=== PATIENT | female | born 1960 | race American Indian/Alaskan Native ===

== ENCOUNTER 2016-12-26 19:44 | Emergency (ER) | payer OTHER, MEDICARE ==
[~2016-12-26 19:44] MED LIST: predniSONE 20 MG Tab PO ONE
[2016-12-26 19:47] VITALS: BP 143/68
--- NOTE | 2016-12-26 20:19 | EDM.PDOC ---
ED HPI GENERAL MEDICAL PROBLEM - General Chief Complaint: Skin Complaint Stated Complaint: RASH Time Seen by Provider: 12/26/16 20:14 Source of Information: Reports: Patient, Family History Limitations: Reports: No Limitations - History of Present Illness INITIAL COMMENTS - FREE TEXT/NARRATIVE: 3 day history of pruretic rash started on the left middle toe region spreading to the left posterior leg and buttock as well as the right dorsal foot. Patient states recent chemotherapy for breast cancer and metastatic cancer of the brain and liver. She states she did not get into any weeds or grass. No change in medications. She states the itching is more irritating with scratching and spreading. She presents for evaluation and treatment. Onset: Gradual Onset Date: 12/24/16 Onset Time: 20:00 Duration: Getting Worse Location: Reports: Lower Extremity, Left, Lower Extremity, Right Quality: Reports: Other (Itching without pain) Severity: Mild Improves with: Reports: None Worsens with: Reports: Other (Time) Associated Symptoms: Reports: No Other Symptoms - Related Data Allergies Allergy/AdvReac Type Severity Reaction Status Date / Time calcitonin,salmon,synthetic Allergy Cannot Verified 12/26/16 19:47 [From Miacalcin] Remember codeine Allergy Hives Verified 12/26/16 19:47 shellfish derived Allergy Hives Verified 12/26/16 19:47 Home Meds: Home Meds Cholecalciferol (Vitamin D3) [Vitamin D-3] 1,000 unit PO DAILY 01/20/14 [History ] Esomeprazole [NexIUM] 40 mg PO DAILY 01/20/14 [History] Fish Oil/[place]-3 Fatty Acids [Fish Oil] 500 mg PO DAILY 01/20/14 [History] Lisinopril [Prinivil] 20 mg PO DAILY 01/20/14 [History] oxyCODONE [oxyCODONE] 20 - 40 mg PO Q4H PRN 01/20/14 [History] Calcium Carbonate [Tums] 500 mg PO QID PRN 05/14/15 [History] Cyanocobalamin/FA/Pyridoxine [Folbee] 1 each PO ASDIRECTED 05/14/15 [History] LORazepam [Ativan] 1 mg PO ASDIRECTED PRN 05/14/15 [History] Magnesium 500 mg PO BID 05/14/15 [History] Ondansetron HCl [Zofran] 4 mg PO Q6H PRN 05/14/15 [History] Sennosides [Senokot] 8.6 mg PO DAILY 05/14/15 [History] oxyCODONE ER [OxyCONTIN] 60 mg PO Q12HR 05/14/15 [History] QUEtiapine Fumarate [Seroquel] 25 mg PO BEDTIME PRN 12/26/16 [History] Past Medical History HEENT History: Reports: Allergic Rhinitis, Impaired Vision Cardiovascular History: Reports: Hypertension Respiratory History: Reports: Other (See Below) (Pulmonary Hypertension) Gastrointestinal History: Reports: None Genitourinary History: Reports: None : 3 Para: 2 Other OB/BYN History: Hysterectomy TAHBSO Musculoskeletal History: Reports: Arthritis Neurological History: Reports: Neuropathy, 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) Psychiatric History: Reports: None Endocrine/Metabolic History: Reports: None Hematologic History: Reports: None Immunologic History: Reports: None Oncologic (Cancer) History: Reports: Brain, Breast, Liver, Metastatic Dermatologic History: Reports: Urticaria - Infectious Disease History Infectious Disease History: Reports: None - Past Surgical History Other Oncologic Surgeries/Procedures: partial removal of liver secondary to cancer Social & Family History - Family History Family Medical History: Noncontributory : Reports: Dialysis, Renal Disease/Insufficiency Endocrine/Metabolic: Reports: Diabetes, type II - Tobacco Use Smoking Status *Q: Current Every Day Smoker Tobacco Use Within Last Twelve Months: Cigarettes Years of Tobacco use: 23 Packs/Tins Daily: 1 Smoking Cessation Information Provided To Patient: Yes (Advised cessation) Second Hand Smoke Exposure: Yes - Tobacco Core Measures Tobacco Use/Smoking Within Last 30 Days: Yes Smoking Frequency Within Last 30 Days: Reports: Five or More Cigarettes Per Day - Caffeine Use Caffeine Use: Reports: Coffee - Alcohol Use Alcohol Use History: No - Recreational Drug Use Recreational Drug Use: No Drug Use in Last 12 Months: No - Sexual History Sexual History: Reports: None - Living Situation & Occupation Living situation: Reports: , with Spouse Occupation: Unemployed ED ROS GENERAL - Review of Systems Review Of Systems: See Below Constitutional: Reports: No Symptoms HEENT: Reports: No Symptoms Respiratory: Reports: No Symptoms Cardiovascular: Reports: No Symptoms Endocrine: Reports: No Symptoms GI/Abdominal: Reports: No Symptoms, Nausea (Chronic) : Reports: No Symptoms Musculoskeletal: Reports: Arm Pain (Tendonitis saw Mary Mancilla placed in a brace not wearing) Skin: Reports: Pruritis, Rash, Urticaria Neurological: Reports: Paresthesia, Pre-Existing Deficit, Tingling Psychiatric: Reports: No Symptoms Hematologic/Lymphatic: Reports: No Symptoms Immunologic: Reports: No Symptoms ED EXAM, SKIN/RASH Exam: See Below Exam Limited By: No Limitations General Appearance: Alert, WD/WN, No Apparent Distress Eye Exam: Bilateral Eye: EOMI, Normal Fundi, Normal Inspection, PERRL Ears: Normal External Exam, Normal Canal, Hearing Grossly Normal, Normal TMs Nose: Normal Inspection, Normal Mucosa, No Blood Throat/Mouth: Normal Inspection, Normal Lips, Normal Teeth, Normal Gums, Normal Oropharynx, Normal Voice, No Airway Compromise Head: Atraumatic, Normocephalic Neck: Normal Inspection, Supple, Non-Tender, Full Range of Motion Respiratory/Chest: No Respiratory Distress, Lungs Clear, Normal Breath Sounds, No Accessory Muscle Use, Chest Non-Tender Cardiovascular: Normal Peripheral Pulses, Regular Rate, Rhythm, No Edema, No Gallop, No JVD, No Murmur, No Rub GI/Abdominal: Normal Bowel Sounds, Soft, Non-Tender, No Organomegaly, No Distention, No Abnormal Bruit, No Mass (Female) Exam: Normal External Exam, Normal Speculum Exam, Normal Bimanual Exam Rectal (Female) Exam: Normal Exam, Normal Rectal Tone Back Exam: Normal Inspection, Full Range of Motion, NT Extremities: Normal Inspection, Normal Range of Motion, Non-Tender, No Pedal Edema, Normal Capillary Refill Neurological: Alert, Oriented, CN II-XII Intact, Normal Cognition, Normal Gait, Normal Reflexes, No Motor/Sensory Deficits Psychiatric: Normal Affect, Normal Mood Skin: Warm, Dry (Vesicular rash noted on the dorsal aspect of left foot-red blanchable rash noted left posterior leg and buttock. ), Increased Warmth, Zoster-Like Rash Location, Skin: Lower Extremity, Right, Lower Extremity, Left, Generalized Characteristics: Papular, Vesicular Associated features: Warmth, Tenderness. No: Induration, Lymphangitis, Inflammation, Weeping, Rough Lymphatic: No Adenopathy Course - Vital Signs Last Recorded V/S: Last Vital Signs Temp 36.6 C 12/26/16 19:44 Pulse 87 12/26/16 19:44 Resp 20 12/26/16 19:44 BP 143/68 H 12/26/16 19:44 Pulse Ox 97 12/26/16 19:44 Departure - Departure Time of Disposition: 20:36 Disposition: Home, Self-Care 01 Clinical Impression: Atopic dermatitis, Pruritic rash - Discharge Information Instructions: Contact Dermatitis, [id number], Pruritus Forms: ED Department Discharge Additional Instructions: Loratadine 10 mg daily as antihistamine. Prednisone 20 mg daily for 5 days. Hydrocortisone cream twice daily Avoid itching or scratching area. F/U with PCP as needed. - Problem List & Annotations (1) Dermatitis SNOMED Code(s): 25097629 Code(s): L30.9 - DERMATITIS, UNSPECIFIED Status: Acute - Problem List Review Problem List Initiated/Reviewed/Updated: Yes - Assessment/Plan Assessment:: Atopic Dermatitis Metastatic Cancer Tobacco Use Plan: Antihistamine for itching Medrol dose pack Hydrocortisone cream apply BID-twice daily as directed.
[2016-12-26] MEDS ORDERED: Loratadine 10 MG Tab PO ONE (20:32)
[2016-12-26] MEDS ORDERED: Take Home: predniSONE 20 MG, 2 Tab Pack PO ONE (20:33)
== END 2016-12-26 20:48 | disposition home or self-care (01) ==
LOC: CC.ED 19:44
DX: L20.9 Atopic dermatitis, unspecified (principal); L29.9 Pruritus, unspecified; Z91.013 Allergy to seafood; M19.90 Unspecified osteoarthritis, unspecified site; F17.210 Nicotine dependence, cigarettes, uncomplicated; H54.7 Unspecified visual loss; I10 Essential (primary) hypertension; C78.7 Secondary malignant neoplasm of liver and intrahepatic bile duct; Z79.899 Other long term (current) drug therapy; Z88.5 Allergy status to narcotic agent
CPT/HCPCS: 99282; A9270

== ENCOUNTER 2017-08-27 06:31 | Inpatient (IN) | payer MEDICARE, OTHER ==
[2017-08-27 07:20] LABS: CHLORIDE,CL 108 mEq/L (98-106); SODIUM,NA 145 mEq/L (136-145)
[2017-08-27] MEDS ORDERED: PYRIDOXINE PO SCH (08:00)
[2017-08-27] MEDS ORDERED: FOLIC ACID PO SCH (08:00)
[2017-08-27] MEDS ORDERED: CYANOCOBALAMIN PO SCH (08:00)
[2017-08-27] MEDS ORDERED: Lactated Ringers 1,000 ML ONE (09:46)
[2017-08-27] MEDS ORDERED: cefTRIAXone 1 GM Vial ONE (09:47)
[2017-08-27] MEDS ORDERED: Non-Formulary Medication 1 Each (Ondansetron Hcl 8 MG) PO PRN (12:03)
[2017-08-27] MEDS ORDERED: Calcium Carbonate 500 MG Tab.Chew PO PRN (12:03)
[2017-08-27] MEDS ORDERED: LORAZEPAM 1 MG PO PRN (12:03)
[2017-08-27] MEDS ORDERED: Acetaminophen 325 MG Tab PO PRN (12:03)
[2017-08-27] MEDS ORDERED: OXYCONTIN 40 MG PO SCH (12:03)
[2017-08-27] MEDS ORDERED: LORazepam 2 MG/ML Syringe IVPUSH PRN (12:03)
[2017-08-27] MEDS ORDERED: Ondansetron 4 MG Tab.DIS PO PRN ×2 (13:36→14:38)
[2017-08-27] MEDS ORDERED: ONDANSETRON 8 MG PO PRN (14:00)
[2017-08-27] MEDS: OXYCODONE 30 MG PO PRN ×4 (14:03→23:00)
[2017-08-27] MEDS: Enoxaparin 30 MG/0.3 ML Syringe SUBCUT SCH (14:27)
[2017-08-27] MEDS ORDERED: Lactated Ringers 1,000 ML IV SCH (14:45)
[2017-08-27] MEDS ORDERED: QUEtiapine 25 MG Tab PO PRN (20:00)
[2017-08-27] MEDS: MAGNESIUM CITRATE 250 MG PO SCH (20:36)
[2017-08-27] MEDS: OXYCONTIN 40 MG PO SCH (23:12)
[2017-08-28 07:27] LABS: CHLORIDE,CL 107 mEq/L (98-106); SODIUM,NA 142 mEq/L (136-145)
[2017-08-28] MEDS: OXYCODONE 30 MG PO PRN ×2 (07:40→10:48)
[2017-08-28] MEDS: OXYCONTIN 40 MG PO SCH ×2 (07:40→07:53)
[2017-08-28] MEDS: MAGNESIUM CITRATE 250 MG PO SCH (07:52)
[2017-08-28] MEDS ORDERED: Lisinopril 10 MG Tab PO SCH (08:00)
[2017-08-28] MEDS ORDERED: Pantoprazole 40 MG Tab.CR PO SCH (08:00)
[2017-08-28] MEDS ORDERED: Sennosides 8.6 MG Tab PO SCH (08:00)
--- NOTE | 2017-08-28 08:42 | EDM.PDOC ---
ED HPI GENERAL MEDICAL PROBLEM - General Chief Complaint: General Stated Complaint: CONFUSION Time Seen by Provider: 08/27/17 07:00 Source of Information: Reports: Patient, EMS, Family History Limitations: Reports: No Limitations - History of Present Illness INITIAL COMMENTS - FREE TEXT/NARRATIVE: Pam is a 57 yo female who presents to the ER via [facility] with concerns of stroke symptoms and confusion. Chun states he was in the bathroom when he heard his making noises. He states he went to check on her and she was staring at the ceiling, making a grunting noise and wouldn't respond to him. He states he tried waking her up. This lasted a few minutes and then she cam to. He states she was confused and combative. He notices she had wet herself in bed as well. He called EMS and EMS states she continued to be combative (trying to bite and hit them) and they immediately put her in the ambulance and brought her in. Upon arrival to ER patient was initially restless and continued to be confused. She gradually improved and realized she was in the hospital and asked to use the restroom. Staff assisted her to the bathroom which she voided a strong smelling urine. Upon my arrival patient is alert and orientated. She initially did not know my name; however she knew her and son, who were at her bedside. She didn't recall any prior events. She was asking why she was in the hospital. She does not recall the ambulance ride either. States she is really cold and tired. Pam doctors at [facility] in [place] as she receives chemotherapy secondary to metastatic breast cancer. She underwent right frontal lobe surgery in 2014 which they state has been fine. She recently underwent CT scan testing a few weeks ago and everything was looking well. She does suffer from chronic pain secondary to the metastasis. Onset: Today, Sudden Onset Date: 08/27/17 Onset Time: 06:05 Duration: Improving Location: Reports: Generalized Associated Symptoms: Reports: Confusion, Malaise. Denies: Headaches, Nausea/ Vomiting, Weakness Back Pain Score (Numeric/FACES): 6 - Related Data Allergies Allergy/AdvReac Type Severity Reaction Status Date / Time calcitonin,salmon,synthetic Allergy Cannot Verified 08/27/17 07:21 [From Miacalcin] Remember codeine Allergy Hives Verified 08/27/17 07:21 shellfish derived Allergy Hives Verified 08/27/17 07:21 Home Meds: Home Meds Cholecalciferol (Vitamin D3) [Vitamin D-3] 1,000 unit PO DAILY 01/20/14 [History ] Esomeprazole [NexIUM] 40 mg PO DAILY 01/20/14 [History] Fish Oil/[place]-3 Fatty Acids [Fish Oil] 500 mg PO DAILY 01/20/14 [History] Lisinopril [Prinivil] 20 mg PO DAILY 01/20/14 [History] oxyCODONE [oxyCODONE] 30 - 60 mg PO Q4H PRN 01/20/14 [History] Calcium Carbonate [Tums] 500 mg PO QID PRN 05/14/15 [History] Cyanocobalamin/FA/Pyridoxine [Folbee] 1 each PO ASDIRECTED 05/14/15 [History] LORazepam [Ativan] 1 mg PO ASDIRECTED PRN 05/14/15 [History] Magnesium 500 mg PO BID 05/14/15 [History] Ondansetron HCl [Zofran] 8 mg PO Q6H PRN 05/14/15 [History] Sennosides [Senokot] 8.6 mg PO DAILY 05/14/15 [History] oxyCODONE ER [OxyCONTIN] 40 mg PO Q12HR 05/14/15 [History] QUEtiapine Fumarate [Seroquel] 25 mg PO BEDTIME PRN 12/26/16 [History] Past Medical History HEENT History: Reports: Allergic Rhinitis, Impaired Vision Cardiovascular History: Reports: Hypertension Respiratory History: Reports: Other (See Below) Gastrointestinal History: Reports: None Genitourinary History: Reports: None Other OB/BYN History: Hysterectomy TAHBSO Musculoskeletal History: Reports: Arthritis Neurological History: Reports: Neuropathy, Peripheral Psychiatric History: Reports: None Endocrine/Metabolic History: Reports: None Hematologic History: Reports: None Immunologic History: Reports: None Oncologic (Cancer) History: Reports: Brain, Breast, Liver, Metastatic Dermatologic History: Reports: Urticaria - Infectious Disease History Infectious Disease History: Reports: None - Past Surgical History Other Oncologic Surgeries/Procedures: partial removal of liver secondary to cancer Social & Family History - Family History Family Medical History: Noncontributory : Reports: Dialysis, Renal Disease/Insufficiency Endocrine/Metabolic: Reports: Diabetes, type II - Tobacco Use Smoking Status *Q: Current Every Day Smoker Years of Tobacco use: 23 Packs/Tins Daily: 1 Second Hand Smoke Exposure: Yes - Caffeine Use Caffeine Use: Reports: Coffee - Recreational Drug Use Recreational Drug Use: No Drug Use in Last 12 Months: No - Sexual History Sexual History: Reports: None - Living Situation & Occupation Living situation: Reports: , with Spouse Occupation: Unemployed ED ROS GENERAL - Review of Systems Review Of Systems: See Below Constitutional: Reports: Malaise, Fatigue. Denies: Fever, Chills HEENT: Reports: No Symptoms. Denies: Vision Change Respiratory: Reports: No Symptoms. Denies: Shortness of Breath, Cough Cardiovascular: Reports: No Symptoms. Denies: Chest Pain, Lightheadedness, Palpitations, Syncope GI/Abdominal: Reports: Abdominal Pain (chronic). Denies: Bloody Stool, Constipation, Diarrhea : Reports: Discharge (foul smelling urine), Frequency, Incontinence. Denies: Dysuria, Flank Pain Neurological: Reports: Confusion. Denies: Headache, Trouble Speaking, Weakness ED EXAM, GENERAL - Physical Exam Exam: See Below Exam Limited By: No Limitations General Appearance: Alert, Lethargic Eye Exam: Bilateral Eye: EOMI, Normal Inspection, PERRL Ears: Normal External Exam, Normal Canal, Hearing Grossly Normal, Normal TMs Nose: Normal Inspection, Normal Mucosa, No Blood Throat/Mouth: Normal Oropharynx, No Airway Compromise, Other (Dried blood noted to lower lip with small abrasion to left anterior aspect of tongue, appears she bit her tongue) Head: Atraumatic, Normocephalic Neck: Normal Inspection, Supple Respiratory/Chest: No Respiratory Distress, Lungs Clear, Normal Breath Sounds, No Accessory Muscle Use Cardiovascular: Regular Rate, Rhythm, No Murmur GI/Abdominal: Normal Bowel Sounds, Soft, No Organomegaly, No Distention, Tender (Female) Exam: Other (incontinence) Neurological: Alert, Oriented, CN II-XII Intact, No Motor/Sensory Deficits, Confused (initially), Memory Loss Recent Events. No: Inattentive Psychiatric: Normal Affect, Normal Mood Skin Exam: Warm, Dry, Intact, Normal Color EKG INTERPRETATION EKG Date: 08/27/17 Rhythm: NSR Comparison: NA - No Prior EKG Course - Vital Signs Last Recorded V/S: Last Vital Signs Temp 97.2 F 08/28/17 08:00 Pulse 67 08/28/17 08:00 Resp 18 08/28/17 08:00 BP 137/62 08/28/17 08:00 Pulse Ox 97 08/28/17 08:00 - Orders/Labs/Meds Orders: Active Orders 24 hr Category Date Time Status Patient Status [ADT] Routine ADT 08/27/17 12:03 Active Oxygen Therapy [RC] .PRN Care 08/27/17 12:03 Active Pulse Oximetry [RC] .PRN Care 08/27/17 12:03 Active Up With Assistance [RC] ASDIRECTED Care 08/27/17 12:03 Active VTE/DVT Education [RC] PER UNIT ROUTINE Care 08/27/17 12:03 Active Vital Signs [RC] 0000,0400,0800,1200,1600,2000 Care 08/27/17 12:03 Active Regular Diet [DIET] Diet 08/27/17 Lunch Active Acetaminophen [Tylenol] Med 08/27/17 12:03 Active 650 mg PO Q4H PRN Calcium Carbonate [Tums] Med 08/27/17 12:03 Active 500 mg PO QID PRN Enoxaparin [Lovenox] Med 08/27/17 12:03 Active 30 mg SUBCUT Q24H LORazepam [Ativan] Med 08/27/17 12:03 Active 2 mg IVPUSH ASDIRECTED PRN Lisinopril [Prinivil] Med 08/28/17 08:00 Active 20 mg PO DAILY Pantoprazole [ProTONIX] Med 08/28/17 08:00 Active 40 mg PO DAILY Patient's Own Medication [Ptom] Med 08/27/17 08:00 Active 1 each PO SEECOMMENT Patient's Own Medication [Ptom] Med 08/27/17 12:03 Active 1 each PO TID PRN Patient's Own Medication [Ptom] Med 08/27/17 20:00 Active 2 each PO BID QUEtiapine [SEROquel] Med 08/27/17 20:00 Active 25 mg PO BEDTIME PRN Sennosides [Senna] Med 08/28/17 08:00 Active 8.6 mg PO DAILY Resuscitation Status Routine Resus Stat 08/27/17 11:55 Ordered Medication Orders Acetaminophen (Tylenol) 650 mg PO Q4H PRN PRN Reason: Pain (Mild 1-3)/fever Last Admin: 08/27/17 13:44 Dose: 650 mg Calcium Carbonate/Glycine (Tums) 500 mg PO QID PRN PRN Reason: Heartburn Ceftriaxone Sodium (Rocephin) 1 gm IVPUSH Q24H [facility] Enoxaparin Sodium (Lovenox) 30 mg SUBCUT Q24H [facility] Last Admin: 08/27/17 14:27 Dose: 30 mg Lactated Ringer's (Ringers, Lactated) 1,000 mls @ 75 mls/hr IV ASDIRECTED [facility] Last Admin: 08/27/17 23:07 Dose: 75 mls/hr Lisinopril (Prinivil) 20 mg PO DAILY [facility] Last Admin: 08/28/17 07:38 Dose: 20 mg Lorazepam (Ativan) 2 mg IVPUSH ASDIRECTED PRN PRN Reason: Seizures Ondansetron HCl (Zofran Odt) 8 mg PO Q6H PRN PRN Reason: Nausea Pantoprazole Sodium (Protonix) 40 mg PO DAILY [facility] Last Admin: 08/28/17 07:39 Dose: 40 mg Folbee (Folic Acid, Cyanocobalamin, And Pyridoxine) Tab Ptom 1 each PO SEECOMMENT [facility] Lorazepam 1 Mg Tab * (*Ptom) 1 each PO TID PRN PRN Reason: Anxiety Magnesium Citrate (250 Mg Cap Ptom) 2 each PO BID [facility] Last Admin: 08/28/17 07:52 Dose: 2 each Admin: 08/27/17 20:36 Dose: 2 each Oxycontin 40 Mg Cr (Tab Ptom) 40 each PO BID@0800,2000 [facility] Last Admin: 08/28/17 07:53 Dose: Not Given Admin: 08/27/17 23:12 Dose: 40 each Oxycodone 30 Mg Tab (Ptom) 1 - 2 each PO Q4H PRN PRN Reason: Pain Last Admin: 08/28/17 07:40 Dose: 1 each Admin: 08/27/17 23:00 Dose: 1 each Admin: 08/27/17 18:49 Dose: 1 each Quetiapine Fumarate (Seroquel) 25 mg PO BEDTIME PRN PRN Reason: Sleep Last Admin: 08/27/17 23:13 Dose: 25 mg Senna (Senna) 8.6 mg PO DAILY KYLE Last Admin: 08/28/17 07:39 Dose: 8.6 mg Labs: Laboratory Tests 08/27/17 08/27/17 08/27/17 Range/Units 06:35 07:02 07:02 WBC 3.4 L (5.0-10.0) 10^3/uL RBC 4.27 (4.00-5.50) 10^6/uL Hgb 12.3 (12.0-16.0) g/dL Hct 38.1 (37.0-47.0) % MCV 89.2 (82.0-94.0) fL MCH 28.8 (27.0-32.0) pg MCHC 32.3 L (33.0-38.0) g/dL RDW Coeff of Danielle 15.1 H (11.0-15.0) % Plt Count 130 L (150-400) 10^3/uL Neut % (Auto) 46.6 (35-85) % Lymph % (Auto) 38.4 (10-55) % [place] % (Auto) 10.6 (0-16) % Eos % (Auto) 3.5 (0-5) % Baso % (Auto) 0.9 (0-3) % Neut # (Auto) 1.59 L (1.80-7.00) 10^3/uL Lymph # (Auto) 1.31 (1.00-4.80) 10^3/uL [place] # (Auto) 0.36 (0.00-0.80) 10^3/uL Eos # (Auto) 0.12 (0.00-0.45) 10^3/uL Baso # (Auto) 0.03 10^3/uL PT 10.7 (9.7-12.3) SEC INR 0.99 (0.92-1.18) APTT 48.1 H (20.0-45.0) SEC Sodium (136-145) mEq/L Potassium (3.5-5.0) mEq/L Chloride (98-106) mEq/L Carbon Dioxide (21-32) mmol/L BUN (7-18) mg/dL Creatinine (0.6-1.0) mg/dL Est Cr Clr Drug Dosing mL/min Estimated GFR (MDRD) (>=60) mL/min Glucose (75-99) mg/dL Calcium (8.4-10.1) mg/dL Creatine Kinase (21-215) U/L Troponin I (0.00-0.06) ng/mL Urine Color Yellow (YELLOW) Urine Appearance Clear (CLEAR) Urine pH 7.0 (4.5-8.0) Ur Specific [place] 1.015 (1.003-1.020) Urine Protein Negative (NEGATIVE) mg/dL Urine Glucose (UA) Negative (NEGATIVE) mg/dL Urine Ketones Negative (NEGATIVE) mg/dL Urine Occult Blood Trace-intact H (NEGATIVE) Urine Nitrite Positive H (NEGATIVE) Urine Bilirubin Negative (NEGATIVE) Urine Urobilinogen 1.0 (0.2-1.0) EU/dL Ur Leukocyte Esterase Moderate H (NEGATIVE) Urine RBC 0-5 (0-5) /HPF Urine WBC 50-75 H (0-5) /HPF Urine WBC Clumps Few H (NOT SEEN) /HPF Urine Bacteria Many H (NOT SEEN) /HPF Urinalysis Comment See note 08/27/17 Range/Units 07:02 WBC (5.0-10.0) 10^3/uL RBC (4.00-5.50) 10^6/uL Hgb (12.0-16.0) g/dL Hct (37.0-47.0) % MCV (82.0-94.0) fL MCH (27.0-32.0) pg MCHC (33.0-38.0) g/dL RDW Coeff of Danielle (11.0-15.0) % Plt Count (150-400) 10^3/uL Neut % (Auto) (35-85) % Lymph % (Auto) (10-55) % [place] % (Auto) (0-16) % Eos % (Auto) (0-5) % Baso % (Auto) (0-3) % Neut # (Auto) (1.80-7.00) 10^3/uL Lymph # (Auto) (1.00-4.80) 10^3/uL [place] # (Auto) (0.00-0.80) 10^3/uL Eos # (Auto) (0.00-0.45) 10^3/uL Baso # (Auto) 10^3/uL PT (9.7-12.3) SEC INR (0.92-1.18) APTT (20.0-45.0) SEC Sodium 145 (136-145) mEq/L Potassium 3.5 (3.5-5.0) mEq/L Chloride 108 H (98-106) mEq/L Carbon Dioxide 26 (21-32) mmol/L BUN 11 (7-18) mg/dL Creatinine 0.8 (0.6-1.0) mg/dL Est Cr Clr Drug Dosing 66.19 mL/min Estimated GFR (MDRD) > 60 (>=60) mL/min Glucose 115 H (75-99) mg/dL Calcium 8.3 L (8.4-10.1) mg/dL Creatine Kinase 161 (21-215) U/L Troponin I < 0.017 (0.00-0.06) ng/mL Urine Color (YELLOW) Urine Appearance (CLEAR) Urine pH (4.5-8.0) Ur Specific [place] (1.003-1.020) Urine Protein (NEGATIVE) mg/dL Urine Glucose (UA) (NEGATIVE) mg/dL Urine Ketones (NEGATIVE) mg/dL Urine Occult Blood (NEGATIVE) Urine Nitrite (NEGATIVE) Urine Bilirubin (NEGATIVE) Urine Urobilinogen (0.2-1.0) EU/dL Ur Leukocyte Esterase (NEGATIVE) Urine RBC (0-5) /HPF Urine WBC (0-5) /HPF Urine WBC Clumps (NOT SEEN) /HPF Urine Bacteria (NOT SEEN) /HPF Urinalysis Comment Meds: Medications Generic Name Dose Route Start Last Admin Trade Name Freq PRN Reason Stop Dose Admin Acetaminophen 650 mg 08/27/17 12:03 08/27/17 13:44 Tylenol PO 650 mg Q4H PRN Administration Pain (Mild 1-3)/fever Calcium Carbonate/Glycine 500 mg 08/27/17 12:03 Tums PO QID PRN Heartburn Ceftriaxone Sodium 1 gm 08/28/17 12:00 Rocephin IVPUSH Q24H KYLE Enoxaparin Sodium 30 mg 08/27/17 12:03 08/27/17 14:27 Lovenox SUBCUT 30 mg Q24H KYLE Administration Lactated Ringer's 1,000 mls @ 75 mls/hr 08/27/17 14:45 08/27/17 23:07 Ringers, Lactated IV 75 mls/hr ASDIRECTED KYLE Administration Lisinopril 20 mg 08/28/17 08:00 08/28/17 07:38 Prinivil PO 20 mg DAILY KYLE Administration Lorazepam 2 mg 08/27/17 12:03 Ativan IVPUSH ASDIRECTED PRN Seizures Ondansetron HCl 8 mg 08/27/17 14:38 Zofran Odt PO Q6H PRN Nausea Pantoprazole Sodium 40 mg 08/28/17 08:00 08/28/17 07:39 Protonix PO 40 mg DAILY KYLE Administration Folbee (Folic Acid, 1 each 08/27/17 08:00 Cyanocobalamin, And PO Pyridoxine) Tab SEECOMMENT KYLE Ptom Lorazepam 1 Mg Tab * 1 each 08/27/17 12:03 *Ptom PO TID PRN Anxiety Magnesium Citrate 2 each 08/27/17 20:00 08/28/17 07:52 250 Mg Cap Ptom PO 2 each BID KYLE Administration Oxycontin 40 Mg Cr 40 each 08/27/17 20:00 08/28/17 07:53 Tab Ptom PO Not Given BID@0800,2000 KYLE Oxycodone 30 Mg Tab 1 - 2 each 08/27/17 14:16 08/28/17 07:40 Ptom PO 1 each Q4H PRN Administration Pain Quetiapine Fumarate 25 mg 08/27/17 20:00 08/27/17 23:13 Seroquel PO 25 mg BEDTIME PRN Administration Sleep Senna 8.6 mg 08/28/17 08:00 08/28/17 07:39 Senna PO 8.6 mg DAILY KYEL Administration Discontinued Medications Generic Name Dose Route Start Last Admin Trade Name Freq PRN Reason Stop Dose Admin Ceftriaxone Sodium Confirm 08/27/17 09:47 08/27/17 10:11 Rocephin Administered 08/27/17 09:48 1 gm Dose Administration 1 gm .ROUTE .STK-MED ONE Lactated Ringer's Confirm 08/27/17 09:46 08/27/17 10:11 Ringers, Lactated Administered 08/27/17 09:47 75 ml Dose Administration 1,000 mls @ as directed .ROUTE .STK-MED ONE Non-Formulary Medication 8 mg 08/27/17 12:03 Ondansetron Hcl PO Q6H PRN Nausea Ondansetron HCl 8 mg 08/27/17 13:36 08/27/17 13:44 Zofran Odt PO 8 mg Q6H PRN Administration Nausea Oxycontin 40 Mg Cr 40 each 08/27/17 12:03 08/27/17 14:21 Tab Ptom PO Not Given Q12H KYLE Oxycodone 30 Mg Tab 30 - 60 each 08/27/17 12:03 08/27/17 14:03 Ptom PO 2 each Q4H PRN Administration Pain Ondansetron 8 Mg Tab 8 each 08/27/17 14:00 Ptom PO Q6H PRN Nausea - Radiology Interpretation Free Text/Narrative:: CT of the brain showed no acute findings. No ischemic or hemorrhagic changes noted. Departure - Departure Time of Disposition: 08:00 Disposition: Admitted As Inpatient 65 Clinical Impression: Seizure UTI (urinary tract infection) Qualifiers: Urinary tract infection type: site unspecified Hematuria presence: with hematuria Qualified Code(s): N39.0 - Urinary tract infection, site not specified ; R31.9 - Hematuria, unspecified; R31.9 - Hematuria, unspecified - Discharge Information - Problem List & Annotations (1) Seizure SNOMED Code(s): 93857599 Code(s): R56.9 - UNSPECIFIED CONVULSIONS Status: Acute Current Visit: Yes (2) UTI (urinary tract infection) SNOMED Code(s): 87717789 Code(s): N39.0 - URINARY TRACT INFECTION, SITE NOT SPECIFIED Status: Acute Current Visit: Yes Qualifiers: Urinary tract infection type: site unspecified Hematuria presence: with hematuria Qualified Code(s): N39.0 - Urinary tract infection, site not specified; R31.9 - Hematuria, unspecified; R31.9 - Hematuria, unspecified - Problem List Review Problem List Initiated/Reviewed/Updated: Yes - My Orders Last 24 Hours: My Active Orders 08/27/17 08:00 Patient's Own Medication [Ptom] 1 each PO SEECOMMENT 08/27/17 11:55 Resuscitation Status Routine 08/27/17 12:03 Patient Status [ADT] Routine Oxygen Therapy [RC] .PRN Pulse Oximetry [RC] .PRN Up With Assistance [RC] ASDIRECTED VTE/DVT Education [RC] PER UNIT ROUTINE Vital Signs [RC] 0000,0400,0800,1200,1600,2000 Acetaminophen [Tylenol] 650 mg PO Q4H PRN Calcium Carbonate [Tums] 500 mg PO QID PRN Enoxaparin [Lovenox] 30 mg SUBCUT Q24H LORazepam [Ativan] 2 mg IVPUSH ASDIRECTED PRN Patient's Own Medication [Ptom] 1 each PO TID PRN 08/27/17 20:00 Patient's Own Medication [Ptom] 2 each PO BID QUEtiapine [SEROquel] 25 mg PO BEDTIME PRN 08/27/17 Lunch Regular Diet [DIET] 08/28/17 08:00 Lisinopril [Prinivil] 20 mg PO DAILY Pantoprazole [ProTONIX] 40 mg PO DAILY Sennosides [Senna] 8.6 mg PO DAILY - Assessment/Plan Admission H&P: Please use this note as an admission H&P Last 24 Hours: My Active Orders 08/27/17 08:00 Patient's Own Medication [Ptom] 1 each PO SEECOMMENT 08/27/17 11:55 Resuscitation Status Routine 08/27/17 12:03 Patient Status [ADT] Routine Oxygen Therapy [RC] .PRN Pulse Oximetry [RC] .PRN Up With Assistance [RC] ASDIRECTED VTE/DVT Education [RC] PER UNIT ROUTINE Vital Signs [RC] 0000,0400,0800,1200,1600,2000 Acetaminophen [Tylenol] 650 mg PO Q4H PRN Calcium Carbonate [Tums] 500 mg PO QID PRN Enoxaparin [Lovenox] 30 mg SUBCUT Q24H LORazepam [Ativan] 2 mg IVPUSH ASDIRECTED PRN Patient's Own Medication [Ptom] 1 each PO TID PRN 08/27/17 20:00 Patient's Own Medication [Ptom] 2 each PO BID QUEtiapine [SEROquel] 25 mg PO BEDTIME PRN 08/27/17 Lunch Regular Diet [DIET] 08/28/17 08:00 Lisinopril [Prinivil] 20 mg PO DAILY Pantoprazole [ProTONIX] 40 mg PO DAILY Sennosides [Senna] 8.6 mg PO DAILY Plan: Consulted with Pam's oncologist, Dr. Mckinley, at [facility] in [place] and Dr. Contreras for admission. Will admit to Dr. Contreras's services under acute care for seizure precaution and will treat her UTI. Culture is currently pending. She has no prior history of seizure activity. Discussed with Dr. Mckinley further evaluation via MRI and she will see her this next week for further testing. Pam is stable and has showed no sign of further seizure activity at this time. She is continent of her urine now. Discussed with Pam and her family that I feel she did have a seizure and we discussed admission with her doctor. They are in agreement with admission at this time. Dr. Contreras agreed with admission.
[2017-08-28] MEDS: Enoxaparin 30 MG/0.3 ML Syringe SUBCUT SCH (11:46)
[2017-08-28] MEDS ORDERED: cefTRIAXone 1 GM Vial IVPUSH SCH (12:00)
--- NOTE | 2017-08-28 13:54 | PCM.DCSUM1 ---
Discharge Summary - Hospital Course HPI Initial Comments: Pam is a 57 year old female who was admitted to the hospital from the ED for seizure and UTI. At time of ED presentation she was combative and confused. She was believed to have had a seizure. Her case was discussed with her oncologist at [facility]. She is currently receiving chemotherapy secondary to metastatic breast cancer. She was found to have UTI. She was started on rocephin. Patient had no active seizing during hospital stay. Remained alert and oriented throughout ED stay. She reports she has been feeling well. She wishes to go home. Patient will return to clinic tomorrow and Wednesday for Rocephin injections. Patient will follow up in clinic Wednesday. - Discharge Data Discharge Date: 08/28/17 Discharge Disposition: Home, Self-Care 01 Condition: Good - Discharge Diagnosis/Problem(s) (1) Seizure SNOMED Code(s): 04474291 ICD Code: R56.9 - UNSPECIFIED CONVULSIONS Status: Acute (2) UTI (urinary tract infection) SNOMED Code(s): 01031045 ICD Code: N39.0 - URINARY TRACT INFECTION, SITE NOT SPECIFIED Status: Acute Qualifiers: Urinary tract infection type: site unspecified Hematuria presence: with hematuria Qualified Code(s): N39.0 - Urinary tract infection, site not specified; R31.9 - Hematuria, unspecified; R31.9 - Hematuria, unspecified (3) Metastatic breast cancer SNOMED Code(s): 874061610 ICD Code: C50.919 - MALIGNANT NEOPLASM OF UNSP SITE OF UNSPECIFIED FEMALE BREAST Status: Acute - Patient Instructions Diet: Usual Diet as Tolerated Activity: As Tolerated Notify Provider of: Fever, Increased Pain, Swelling and Redness, Drainage, Nausea and/or Vomiting - Discharge Plan Home Medications: Home Meds Cholecalciferol (Vitamin D3) [Vitamin D-3] 1,000 unit PO DAILY 01/20/14 [History ] Esomeprazole [NexIUM] 40 mg PO DAILY 01/20/14 [History] Fish Oil/[place]-3 Fatty Acids [Fish Oil] 500 mg PO DAILY 01/20/14 [History] Lisinopril [Prinivil] 20 mg PO DAILY 01/20/14 [History] oxyCODONE [oxyCODONE] 30 - 60 mg PO Q4H PRN 01/20/14 [History] Calcium Carbonate [Tums] 500 mg PO QID PRN 05/14/15 [History] Cyanocobalamin/FA/Pyridoxine [Folbee] 1 each PO ASDIRECTED 05/14/15 [History] LORazepam [Ativan] 1 mg PO ASDIRECTED PRN 05/14/15 [History] Magnesium 500 mg PO BID 05/14/15 [History] Ondansetron HCl [Zofran] 8 mg PO Q6H PRN 05/14/15 [History] Sennosides [Senokot] 8.6 mg PO DAILY 05/14/15 [History] oxyCODONE ER [OxyCONTIN] 40 mg PO Q12HR 05/14/15 [History] QUEtiapine Fumarate [Seroquel] 25 mg PO BEDTIME PRN 12/26/16 [History] Patient Handouts: Urinary Tract Infection, Adult Forms: ED Department Discharge Referrals: Jesús Contreras MD [Primary Care Provider] - - General Info Date of Service: 08/28/17 Admission Dx/Problem (Free Text: UTI Seizure Functional Status: Reports: Pain Controlled, Tolerating Diet, Ambulating, Urinating. Denies: New Symptoms - Review of Systems General: Denies: Fever, Weakness, Fatigue Pulmonary: Reports: No Symptoms Cardiovascular: Reports: No Symptoms Genitourinary: Reports: Frequency, Urgency. Denies: Dysuria Musculoskeletal: Reports: No Symptoms Skin: Reports: No Symptoms Neurological: Reports: No Symptoms. Denies: Confusion, Dizziness, Headache, Seizure Psychiatric: Reports: No Symptoms. Denies: Confusion - Patient Data Vitals - Most Recent: Last Vital Signs Temp 97.2 F 08/28/17 08:00 Pulse 67 08/28/17 08:00 Resp 18 08/28/17 08:00 BP 137/62 08/28/17 08:00 Pulse Ox 97 08/28/17 08:00 Weight - Most Recent: 162 lb 3.2 oz Lab Results - Last 24 hrs: Laboratory Results - last 24 hr 08/28/17 08/28/17 Range/Units 06:45 06:45 WBC 3.6 L (5.0-10.0) 10^3/uL RBC 3.99 L (4.00-5.50) 10^6/uL Hgb 11.6 L (12.0-16.0) g/dL Hct 35.7 L (37.0-47.0) % MCV 89.5 (82.0-94.0) fL MCH 29.1 (27.0-32.0) pg MCHC 32.5 L (33.0-38.0) g/dL RDW Coeff of Danielle 15.0 (11.0-15.0) % Plt Count 130 L (150-400) 10^3/uL Neut % (Auto) 46.5 (35-85) % Lymph % (Auto) 38.6 (10-55) % Frio % (Auto) 10.4 (0-16) % Eos % (Auto) 3.9 (0-5) % Baso % (Auto) 0.6 (0-3) % Neut # (Auto) 1.65 L (1.80-7.00) 10^3/uL Lymph # (Auto) 1.37 (1.00-4.80) 10^3/uL Frio # (Auto) 0.37 (0.00-0.80) 10^3/uL Eos # (Auto) 0.14 (0.00-0.45) 10^3/uL Baso # (Auto) 0.02 10^3/uL Sodium 142 (136-145) mEq/L Potassium 3.5 (3.5-5.0) mEq/L Chloride 107 H (98-106) mEq/L Carbon Dioxide 30 (21-32) mmol/L BUN 10 (7-18) mg/dL Creatinine 0.6 (0.6-1.0) mg/dL Est Cr Clr Drug Dosing 95.68 mL/min Estimated GFR (MDRD) > 60 (>=60) mL/min Glucose 89 (75-99) mg/dL Calcium 8.5 (8.4-10.1) mg/dL C-Reactive Protein 0.2 (0.2-0.8) mg/dL Med Orders - Current: Current Medications Acetaminophen (Tylenol) 650 mg PO Q4H PRN PRN Reason: Pain (Mild 1-3)/fever Last Admin: 08/27/17 13:44 Dose: 650 mg Calcium Carbonate/Glycine (Tums) 500 mg PO QID PRN PRN Reason: Heartburn Ceftriaxone Sodium (Rocephin) 1 gm IVPUSH Q24H [facility] Last Admin: 08/28/17 11:47 Dose: 1 gm Enoxaparin Sodium (Lovenox) 30 mg SUBCUT Q24H [facility] Last Admin: 08/28/17 11:46 Dose: 30 mg Lactated Ringer's (Ringers, Lactated) 1,000 mls @ 75 mls/hr IV ASDIRECTED [facility] Last Admin: 08/27/17 23:07 Dose: 75 mls/hr Lisinopril (Prinivil) 20 mg PO DAILY [facility] Last Admin: 08/28/17 07:38 Dose: 20 mg Lorazepam (Ativan) 2 mg IVPUSH ASDIRECTED PRN PRN Reason: Seizures Ondansetron HCl (Zofran Odt) 8 mg PO Q6H PRN PRN Reason: Nausea Last Admin: 08/28/17 08:46 Dose: 8 mg Pantoprazole Sodium (Protonix) 40 mg PO DAILY [facility] Last Admin: 08/28/17 07:39 Dose: 40 mg Folbee (Folic Acid, Cyanocobalamin, And Pyridoxine) Tab Ptom 1 each PO SEECOMMENT [facility] Lorazepam 1 Mg Tab * (*Ptom) 1 each PO TID PRN PRN Reason: Anxiety Magnesium Citrate (250 Mg Cap Ptom) 2 each PO BID [facility] Last Admin: 08/28/17 07:52 Dose: 2 each Oxycontin 40 Mg Cr (Tab Ptom) 40 each PO BID@0800,2000 [facility] Last Admin: 08/28/17 07:40 Dose: 40 each Oxycodone 30 Mg Tab (Ptom) 1 - 2 each PO Q4H PRN PRN Reason: Pain Last Admin: 08/28/17 10:48 Dose: 1 each Quetiapine Fumarate (Seroquel) 25 mg PO BEDTIME PRN PRN Reason: Sleep Last Admin: 08/27/17 23:13 Dose: 25 mg Senna (Senna) 8.6 mg PO DAILY [facility] Last Admin: 08/28/17 07:39 Dose: 8.6 mg Discontinued Medications Ceftriaxone Sodium (Rocephin) Confirm Administered Dose 1 gm .ROUTE .[facility]-MED ONE Stop: 08/27/17 09:48 Last Admin: 08/27/17 10:11 Dose: 1 gm Lactated Ringer's (Ringers, Lactated) Confirm Administered Dose 1,000 mls @ as directed .ROUTE .[facility] ONE Stop: 08/27/17 09:47 Last Admin: 08/27/17 10:11 Dose: 75 ml Non-Formulary Medication (Ondansetron Hcl) 8 mg PO Q6H PRN PRN Reason: Nausea Ondansetron HCl (Zofran Odt) 8 mg PO Q6H PRN PRN Reason: Nausea Last Admin: 08/27/17 13:44 Dose: 8 mg Oxycontin 40 Mg Cr (Tab Ptom) 40 each PO Q12H [facility] Last Admin: 08/27/17 14:21 Dose: Not Given Oxycodone 30 Mg Tab (Ptom) 30 - 60 each PO Q4H PRN PRN Reason: Pain Last Admin: 08/27/17 14:03 Dose: 2 each Ondansetron 8 Mg Tab (Ptom) 8 each PO Q6H PRN PRN Reason: Nausea - Exam General: Reports: Alert, Oriented, No Acute Distress HEENT: Reports: Pupils Equal, Pupils Reactive, EOMI, Mucous Membr. Moist/[place] Neck: Reports: Supple Lungs: Reports: Clear to Auscultation, Normal Respiratory Effort Cardiovascular: Reports: Regular Rate, Regular Rhythm Back Exam: Reports: Normal Inspection, Full Range of Motion. Denies: CVA Tenderness (L), CVA Tenderness (R) Neurological: Reports: No New Focal Deficit Psy/Mental Status: Reports: Alert, Normal Affect, Normal Mood *Q Meaningful Use (DIS) - VTE *Q VTE Criteria *Q: - Stroke *Q Stroke Criteria *Q: - AMI *Q AMI Criteria *Q:
[2017-08-28 14:17] VITALS: BP 141/62
--- NOTE | 2017-08-30 08:34 | PN ---
DATE: 08/28/2017 Pam Pruett came in with UTI with a seizure secondary to the UTI. She is presently on IV antibiotics, doing fine. White count is suppressed from the chemotherapy, hemoglobin stable, UA is positive. Panel-8 looks good. C- reactive protein 0.2. Talked at length with the patient. On examination, abdomen was soft. I talked to the patient at length if she wants to go outpatient on IV Rocephin, which again I think is fine, so we will do that, and she will be discharged today. BETHANY/JARAD /[id number]
== END 2017-08-28 14:15 | disposition home or self-care (01) | DRG 690 ==
LOC: CC.ED 06:31 → UNDOADMIN 08:14 → CC.MS 08:14
PROVIDERS: ADMIT Physician Assistant Medical; ATTEND General Practice
DX: N39.0 Urinary tract infection, site not specified (principal); C78.7 Secondary malignant neoplasm of liver and intrahepatic bile duct; C79.31 Secondary malignant neoplasm of brain; R56.9 Unspecified convulsions; I10 Essential (primary) hypertension; J30.9 Allergic rhinitis, unspecified; M19.90 Unspecified osteoarthritis, unspecified site; H54.7 Unspecified visual loss; G62.9 Polyneuropathy, unspecified; Z79.899 Other long term (current) drug therapy; Z88.8 Allergy status to other drugs, medicaments and biological substances; Z91.013 Allergy to seafood; F17.210 Nicotine dependence, cigarettes, uncomplicated; C50.919 Malignant neoplasm of unspecified site of unspecified female breast
CPT/HCPCS: 36415; 70450; 80048; 81001; 82550; 84484; 85025; 85610; 85730; 87086; 87088; 87186; 93005; 99285; J0696; J7120; 86140; 93010; A9270-GY; J1650

== ENCOUNTER 2017-12-10 02:40 | Inpatient (IN) | payer MEDICARE, OTHER ==
--- NOTE | 2017-12-10 03:24 | EDM.PDOC ---
ED HPI GENERAL MEDICAL PROBLEM - General Chief Complaint: General Stated Complaint: confusion Time Seen by Provider: 12/10/17 03:10 Source of Information: Reports: Family () History Limitations: Reports: No Limitations - History of Present Illness INITIAL COMMENTS - FREE TEXT/NARRATIVE: noted that about 9 pm she started to get confused and was complaining of being tired. She was in [place] today to see her palliative care Dr. and she slept all the way down and all the way back home. She denied any pain or discomfort. She did have labs and a urine done there but have not been notified of any results yet. After she went to bed she has been up and down multiple times cold and then hot. confused and not making any sense. She would be hot and then cold. She has history of UTI's in the past. SHe has history of breast cancer in 2010, liver cancer in 2012 and brain cancer in 2014 and is considered in remission and is supposed to be going to [employer] [facility] [employer] coming up for scans to evaluate her cancer. She does get a maintainence dose of chemo every 3 hours. She has denied any pain recently. Has been to the bathroom multiple times since she has been here. does walk on her own. Onset: Gradual Duration: Getting Worse Associated Symptoms: Reports: Confusion - Related Data Allergies Allergy/AdvReac Type Severity Reaction Status Date / Time calcitonin,salmon,synthetic Allergy Cannot Verified 12/10/17 02:52 [From Miacalcin] Remember codeine Allergy Hives Verified 12/10/17 02:52 shellfish derived Allergy Hives Verified 12/10/17 02:52 Home Meds: Home Meds Cholecalciferol (Vitamin D3) [Vitamin D-3] 1,000 unit PO DAILY 01/20/14 [History ] Lisinopril [Prinivil] 20 mg PO DAILY 01/20/14 [History] oxyCODONE 30 - 60 mg PO Q4H PRN 01/20/14 [History] LORazepam [Ativan] 1 mg PO ASDIRECTED PRN 05/14/15 [History] Magnesium 500 mg PO BID 05/14/15 [History] Ondansetron HCl [Zofran] 8 mg PO Q6H PRN 05/14/15 [History] Sennosides [Senokot] 8.6 mg PO DAILY 05/14/15 [History] oxyCODONE ER [OxyCONTIN] 40 mg PO Q12HR 05/14/15 [History] QUEtiapine Fumarate [Seroquel] 25 mg PO BEDTIME PRN 12/26/16 [History] Aspirin [Halfprin] 81 mg PO DAILY 12/10/17 [History] Past Medical History HEENT History: Reports: Allergic Rhinitis, Impaired Vision Cardiovascular History: Reports: Hypertension Respiratory History: Reports: Other (See Below) Gastrointestinal History: Reports: None Genitourinary History: Reports: None Other OB/BYN History: Hysterectomy TAHBSO Musculoskeletal History: Reports: Arthritis Neurological History: Reports: Neuropathy, Peripheral Psychiatric History: Reports: None Endocrine/Metabolic History: Reports: None Hematologic History: Reports: None Immunologic History: Reports: None Oncologic (Cancer) History: Reports: Brain, Breast, Liver, Metastatic Dermatologic History: Reports: Urticaria - Infectious Disease History Infectious Disease History: Reports: None - Past Surgical History Other Oncologic Surgeries/Procedures: partial removal of liver secondary to cancer Social & Family History - Family History Family Medical History: Noncontributory : Reports: Dialysis, Renal Disease/Insufficiency Endocrine/Metabolic: Reports: Diabetes, type II - Caffeine Use Caffeine Use: Reports: Coffee - Sexual History Sexual History: Reports: None - Living Situation & Occupation Living situation: Reports: , with Spouse Occupation: Unemployed ED ROS GENERAL - Review of Systems Review Of Systems: See Below Constitutional: Reports: Chills (hot and cold.) HEENT: Reports: No Symptoms Respiratory: Reports: No Symptoms. Denies: Cough Cardiovascular: Reports: No Symptoms GI/Abdominal: Reports: No Symptoms. Denies: Constipation, Diarrhea : Reports: Frequency Musculoskeletal: Reports: No Symptoms Skin: Reports: Bruising Neurological: Reports: Confusion Psychiatric: Reports: Confusion ED EXAM, GENERAL - Physical Exam Exam: See Below Exam Limited By: Altered Mental Status General Appearance: Other (confused and wanting to sleep. Unable to tell me who I am. Lays in bed slightly restless and with eyes closed.) Ears: Normal External Exam, Normal Canal, Normal TMs Nose: Normal Inspection, No Blood Throat/Mouth: Normal Inspection, Normal Oropharynx, No Airway Compromise Head: Atraumatic, Normocephalic Neck: Normal Inspection, Supple, Non-Tender, Full Range of Motion Respiratory/Chest: No Respiratory Distress, Lungs Clear, Normal Breath Sounds Cardiovascular: Regular Rate, Rhythm. No: No Edema (has 1-2+ edema bilaterally. ) GI/Abdominal: Normal Bowel Sounds, Soft, Non-Tender, No Distention Extremities: Normal Inspection, Normal Range of Motion, Pedal Edema (1-2+ bilaterally) Neurological: Confused, Disoriented Skin Exam: Warm, Dry, Intact Course - Vital Signs Last Recorded V/S: Last Vital Signs Temp 98 F 12/10/17 04:55 Pulse 72 12/10/17 04:55 Resp 18 12/10/17 04:55 BP 137/59 L 12/10/17 04:55 Pulse Ox 98 12/10/17 04:55 - Orders/Labs/Meds Orders: Active Orders 24 hr Category Date Time Status Chest 2V [CR] Stat Exams 12/10/17 03:47 Taken Head wo Cont [CT] Stat Exams 12/10/17 03:47 Taken CULTURE URINE [RM] Stat Lab 12/10/17 03:40 Received Medication Orders Acetaminophen (Tylenol) 650 mg PO Q4H PRN PRN Reason: Pain (Mild 1-3)/fever Aspirin (Halfprin) 81 mg PO DAILY [facility] Cholecalciferol (Vitamin D3) 1,000 units PO DAILY [facility] Enoxaparin Sodium (Lovenox) 30 mg SUBCUT Q24H [facility] Last Admin: 12/10/17 05:56 Dose: 30 mg Sodium Chloride (Normal Saline) 1,000 mls @ 125 mls/hr IV ASDIRECTED [facility] Last Admin: 12/10/17 05:58 Dose: 125 mls/hr Lisinopril (Prinivil) 20 mg PO DAILY [facility] Lorazepam (Ativan) 1 mg PO Q6H PRN PRN Reason: Anxiety Magnesium Oxide (Magnesium Oxide) 500 mg PO BID [facility] Ondansetron HCl (Zofran Odt) 8 mg PO Q6H PRN PRN Reason: Nausea Oxycodone HCl (Oxycodone) 30 - 60 mg PO Q4H PRN PRN Reason: Pain Oxycodone HCl (Oxycontin) 40 mg PO BID [facility] Quetiapine Fumarate (Seroquel) 25 mg PO BEDTIME PRN PRN Reason: Sleep Senna (Senna) 8.6 mg PO DAILY [facility] Labs: Laboratory Tests 12/10/17 12/10/17 12/10/17 Range/Units 03:01 03:20 03:20 WBC 3.9 L (5.0-10.0) 10^3/uL RBC 4.34 (4.00-5.50) 10^6/uL Hgb 12.9 (12.0-16.0) g/dL Hct 38.5 (37.0-47.0) % MCV 88.7 (82.0-94.0) fL MCH 29.7 (27.0-32.0) pg MCHC 33.5 (33.0-38.0) g/dL RDW Coeff of Danielle 14.4 (11.0-15.0) % Plt Count 110 L (150-400) 10^3/uL Neut % (Auto) 63.7 (35-85) % Lymph % (Auto) 24.7 (10-55) % [place] % (Auto) 8.8 (0-16) % Eos % (Auto) 2.3 (0-5) % Baso % (Auto) 0.5 (0-3) % Neut # (Auto) 2.45 (1.80-7.00) 10^3/uL Lymph # (Auto) 0.95 L (1.00-4.80) 10^3/uL [place] # (Auto) 0.34 (0.00-0.80) 10^3/uL Eos # (Auto) 0.09 (0.00-0.45) 10^3/uL Baso # (Auto) 0.02 10^3/uL Sodium 145 (136-145) mEq/L Potassium 3.5 (3.5-5.0) mEq/L Chloride 108 H (98-106) mEq/L Carbon Dioxide 30 (21-32) mmol/L BUN 12 (7-18) mg/dL Creatinine 0.9 (0.6-1.0) mg/dL Est Cr Clr Drug Dosing 61.31 mL/min Estimated GFR (MDRD) > 60 (>=60) mL/min Glucose 112 H D (75-99) mg/dL Calcium 8.6 (8.4-10.1) mg/dL C-Reactive Protein < 0.2 L (0.2-0.8) mg/dL Urine Color Light yellow (YELLOW) Urine Appearance Clear (CLEAR) Urine pH 7.5 (4.5-8.0) Ur Specific [place] 1.015 (1.003-1.020) Urine Protein Negative (NEGATIVE) mg/dL Urine Glucose (UA) Negative (NEGATIVE) mg/dL Urine Ketones Negative (NEGATIVE) mg/dL Urine Occult Blood Negative (NEGATIVE) Urine Nitrite Negative (NEGATIVE) Urine Bilirubin Negative (NEGATIVE) Urine Urobilinogen 1.0 (0.2-1.0) EU/dL Ur Leukocyte Esterase Trace H (NEGATIVE) Urine RBC 0-5 (0-5) /HPF Urine WBC 0-5 (0-5) /HPF Ur Epithelial Cells Few H (NOT SEEN) /HPF Meds: Medications Generic Name Dose Route Start Last Admin Trade Name Freq PRN Reason Stop Dose Admin Acetaminophen 650 mg 12/10/17 04:55 Tylenol PO Q4H PRN Pain (Mild 1-3)/fever Aspirin 81 mg 12/10/17 08:00 Halfprin PO DAILY [facility] Cholecalciferol 1,000 units 12/10/17 08:00 Vitamin D3 PO DAILY [facility] Enoxaparin Sodium 30 mg 12/10/17 04:55 12/10/17 05:56 Lovenox SUBCUT 30 mg Q24H [facility] Administration Sodium Chloride 1,000 mls @ 125 mls/hr 12/10/17 04:55 12/10/17 05:58 Normal Saline IV 125 mls/hr ASDIRECTED [facility] Administration Lisinopril 20 mg 12/10/17 08:00 Prinivil PO DAILY [facility] Lorazepam 1 mg 12/10/17 04:55 Ativan PO Q6H PRN Anxiety Magnesium Oxide 500 mg 12/10/17 08:00 Magnesium Oxide PO BID [facility] Ondansetron HCl 8 mg 12/10/17 04:55 Zofran Odt PO Q6H PRN Nausea Oxycodone HCl 30 - 60 mg 12/10/17 04:55 Oxycodone PO Q4H PRN Pain Oxycodone HCl 40 mg 12/10/17 08:00 Oxycontin PO BID [facility] Quetiapine Fumarate 25 mg 12/10/17 04:55 Seroquel PO BEDTIME PRN Sleep Senna 8.6 mg 12/10/17 08:00 Senna PO DAILY [facility] Discontinued Medications Generic Name Dose Route Start Last Admin Trade Name Freq PRN Reason Stop Dose Admin Oxycodone HCl 40 mg 12/10/17 04:55 12/10/17 06:37 Oxycontin PO Not Given Q12H [facility] - Re-Assessments/Exams Free Text/Narrative Re-Assessment/Exam: 12/10/17 03:48 Discussed with and son that her labs are basically negative. will do head ct and CXR. 12/10/17 04:38 Discussed with that her CT head does not show any acute changes and CXR are normal. Continues to get up and down frequently with urination in small amounts. Will admit for IV hydration and follow up labs in the AM. Departure - Departure Time of Disposition: 03:44 Disposition: Admitted As Inpatient 65 Condition: Fair Clinical Impression: Confusion Brain cancer Qualifiers: Malignant neoplasm of brain location: unspecified location Qualified Code(s): C71.9 - Malignant neoplasm of brain, unspecified Liver cancer Qualifiers: Liver malignancy type: unspecified liver malignancy Qualified Code(s): C22.9 - Malignant neoplasm of liver, not specified as primary or secondary - Discharge Information - Problem List & Annotations (1) Confusion SNOMED Code(s): 247048177 Code(s): R41.0 - DISORIENTATION, UNSPECIFIED Status: Acute Priority: High Current Visit: Yes (2) Metastatic breast cancer SNOMED Code(s): 037656906, 526854870 Code(s): C50.919 - MALIGNANT NEOPLASM OF UNSP SITE OF UNSPECIFIED FEMALE BREAST Status: Chronic Priority: Low Current Visit: No (3) Brain cancer SNOMED Code(s): 774416736 Code(s): C71.9 - MALIGNANT NEOPLASM OF BRAIN, UNSPECIFIED Status: Chronic Priority: Medium Current Visit: Yes (4) Liver cancer SNOMED Code(s): 74518323 Code(s): C22.9 - MALIG NEOPLASM OF LIVER, NOT SPECIFIED PRIMARY OR SEC Status: Chronic Priority: Low Current Visit: Yes - Problem List Review Problem List Initiated/Reviewed/Updated: Yes - My Orders Last 24 Hours: My Active Orders 12/10/17 03:40 CULTURE URINE [RM] Stat 12/10/17 03:47 Chest 2V [CR] Stat Head wo Cont [CT] Stat - Assessment/Plan Admission H&P: Please use this note as an admission H&P Last 24 Hours: My Active Orders 12/10/17 03:40 CULTURE URINE [RM] Stat 12/10/17 03:47 Chest 2V [CR] Stat Head wo Cont [CT] Stat Plan: 0800- Discussed pt with Dr. Contreras who saw the pt at this time and he agrees with admit. He will assume care and will order further workup.
[2017-12-10 03:32] LABS: CHLORIDE,CL 108 mEq/L (98-106); SODIUM,NA 145 mEq/L (136-145)
[2017-12-10] MEDS ORDERED: Enoxaparin 30 MG/0.3 ML Syringe SUBCUT SCH (04:55)
[2017-12-10] MEDS ORDERED: LORazepam 0.5 MG Tab PO PRN (04:55)
[2017-12-10] MEDS ORDERED: Acetaminophen 325 MG Tab PO PRN (04:55)
[2017-12-10] MEDS ORDERED: QUEtiapine 25 MG Tab PO PRN (04:55)
[2017-12-10] MEDS ORDERED: Sodium Chloride 0.9% 1,000 ML IV SCH (04:55)
[2017-12-10] MEDS ORDERED: Ondansetron 4 MG Tab.DIS PO PRN (04:55)
[2017-12-10] MEDS ORDERED: oxyCODONE ER 10 MG TAB.ER PO SCH ×2 (04:55→08:00)
[2017-12-10] MEDS ORDERED: oxyCODONE 5 MG Tab PO PRN (04:55)
[2017-12-10 04:58] VITALS: BP 137/59
[2017-12-10] MEDS ORDERED: Lisinopril 20 MG Tab PO SCH (08:00)
[2017-12-10] MEDS ORDERED: Sennosides 8.6 MG Tab PO SCH (08:00)
[2017-12-10] MEDS ORDERED: Cholecalciferol (Vitamin D3) 1,000 Unit Tab PO SCH (08:00)
[2017-12-10] MEDS ORDERED: Aspirin 81 MG Tab.EC PO SCH (08:00)
--- NOTE | 2017-12-10 08:57 | PCM.SN ---
- Free Text/Narrative Note: Mary CHACON updated Dr. Contreras and myself on patient's condition. Dr. Contreras and myself in to see patient this morning. Lab work up all benign. CT head negative. Attempted to call Dr. Mckinley office. Notified her nurse of patient' s status. Called [facility]. Discussed case with Dr. Evans ( hospitalist), who accepted patient for transfer. Patient will be transferred via [facility]. Patient will be given 5 mg Haldol prior to departure as she is combative with nursing staff. Updated patient's Stevie, who was agreeable with transfer. Risks and benefits of transfer discussed with patient's . Risks of transfer include worsening of condition, , and MVA enroute. Benefits of transfer include higher level of care, oncology and neurology speciality, and MRI capability. Risks of nontransfer include worsening of condition, , and nonspecialized care or MRI capability. Benefits of nontransfer include familiar environment and closer proximity to home. Stevie voiced understanding and is agreeable with transfer.
[2017-12-10] MEDS ORDERED: Haloperidol Lactate 5 MG/ML SDV IM ONE (09:10)
== END 2017-12-10 10:05 | DRG 948 ==
LOC: CC.ED 02:40 → CC.MS 04:37 → UNDOADMIN 04:37 → CC.MS 04:42
PROVIDERS: ADMIT Physician Assistant Medical; ATTEND General Practice
DX: R41.0 Disorientation, unspecified (principal); C78.7 Secondary malignant neoplasm of liver and intrahepatic bile duct; C79.31 Secondary malignant neoplasm of brain; J30.9 Allergic rhinitis, unspecified; H54.7 Unspecified visual loss; I10 Essential (primary) hypertension; G62.9 Polyneuropathy, unspecified; L50.9 Urticaria, unspecified; R35.0 Frequency of micturition; C50.919 Malignant neoplasm of unspecified site of unspecified female breast; Z87.440 Personal history of urinary (tract) infections; Z92.21 Personal history of antineoplastic chemotherapy; Z88.8 Allergy status to other drugs, medicaments and biological substances; Z88.6 Allergy status to analgesic agent; Z90.710 Acquired absence of both cervix and uterus; Z91.013 Allergy to seafood; Z79.82 Long term (current) use of aspirin; Z79.891 Long term (current) use of opiate analgesic; Z79.899 Other long term (current) drug therapy; R68.83 Chills (without fever); R41.82 Altered mental status, unspecified; R53.83 Other fatigue
CPT/HCPCS: 70450; 71046; 80048; 81001; 85025; 86140; 87086; 99285; J1630; J1650; J7030

== ENCOUNTER 2018-05-05 08:22 | Inpatient (IN) | payer MEDICARE, OTHER ==
--- NOTE | 2018-05-05 09:56 | EDM.PDOC ---
ED HPI GENERAL MEDICAL PROBLEM - General Chief Complaint: General Stated Complaint: "I think she has a bad UTI" Time Seen by Provider: 05/05/18 09:40 Source of Information: Reports: Family ( Stevie) History Limitations: Reports: Altered Mental Status - History of Present Illness INITIAL COMMENTS - FREE TEXT/NARRATIVE: states that yesterday she slept a lot and that today she was more confused and would be belligerent about things like getting dressed. Tried to put underwear on as bra and wasn't making sense. She told him she was tired and didn't feel good but denied having any pain. He has noted a very strong urine odor. Hasn't been eating much the last 2 days. Has been taking meds but did not take them this AM. Has history of unresponsiveness in the past when her ammonia level was high. Has been on lactualose TID and had 2 bowel movements yesterday. stated taht she is supposed to try to have 3 a day to get rid of the ammonia. SHe has not had a fever that he is aware of but does complain of being cold today. Did have liver biopsy at [facility] in [place] last week but has not heard back from them. Last chemo was November 25 and he states that they won't do any more due to the liver damage. She denies any pain when asked. She states I just don't feel good. Onset: Gradual Location: Reports: Generalized Generalized Pain Score (Numeric/FACES): 6 - Related Data Allergies Allergy/AdvReac Type Severity Reaction Status Date / Time calcitonin,salmon,synthetic Allergy Cannot Verified 05/05/18 08:33 [From Miacalcin] Remember codeine Allergy Hives Verified 05/05/18 08:33 shellfish derived Allergy Hives Verified 05/05/18 08:33 Home Meds: Home Meds Cholecalciferol (Vitamin D3) [Vitamin D-3] 1,000 unit PO DAILY 01/20/14 [History ] Lisinopril [Prinivil] 20 mg PO DAILY 01/20/14 [History] oxyCODONE 60 mg PO Q4H PRN 01/20/14 [History] LORazepam [Ativan] 1 mg PO Q6H PRN 05/14/15 [History] Magnesium 500 mg PO BID 05/14/15 [History] Ondansetron HCl [Zofran] 8 mg PO Q6H PRN 05/14/15 [History] QUEtiapine Fumarate [Seroquel] 25 mg PO BEDTIME PRN 12/26/16 [History] Esomeprazole Magnesium [Nexium] 40 mg PO DAILY 05/05/18 [History] Furosemide 40 mg PO DAILY 05/05/18 [History] Lactulose 30 ml PO TID 05/05/18 [History] Potassium Chloride 20 meq PO BID 05/05/18 [History] oxyCODONE HCl [Oxycontin] 80 mg PO BID 05/05/18 [History] Past Medical History HEENT History: Reports: Allergic Rhinitis, Impaired Vision Cardiovascular History: Reports: Hypertension Respiratory History: Reports: Other (See Below) Gastrointestinal History: Reports: GERD Genitourinary History: Reports: UTI, Recurrent Other [employer] History: Hysterectomy TAHBSO Musculoskeletal History: Reports: Arthritis Neurological History: Reports: Neuropathy, Peripheral Psychiatric History: Reports: Anxiety Endocrine/Metabolic History: Reports: None Hematologic History: Reports: None Immunologic History: Reports: None Oncologic (Cancer) History: Reports: Brain, Breast, Liver, Metastatic Dermatologic History: Reports: Urticaria - Infectious Disease History Infectious Disease History: Reports: None - Past Surgical History Other Oncologic Surgeries/Procedures: partial removal of liver secondary to cancer. states patient had a liver biopsy last week in [place] Social & Family History - Family History Family Medical History: Noncontributory : Reports: Dialysis, Renal Disease/Insufficiency Endocrine/Metabolic: Reports: Diabetes, type II - Tobacco Use Smoking Status *Q: Current Every Day Smoker Years of Tobacco use: 20 Packs/Tins Daily: 0.5 - Caffeine Use Caffeine Use: Reports: Coffee - Sexual History Sexual History: Reports: None - Living Situation & Occupation Living situation: Reports: , with Spouse Occupation: Unemployed ED ROS GENERAL - Review of Systems Review Of Systems: See Below Constitutional: Reports: Chills, Weakness, Fatigue Respiratory: Denies: Shortness of Breath, Cough Cardiovascular: Denies: Chest Pain, Edema GI/Abdominal: Denies: Abdominal Pain, Constipation, Diarrhea, Decreased Appetite : Reports: Other (very strong odor to urine noted.). Denies: Dysuria, Frequency Musculoskeletal: Reports: No Symptoms Skin: Reports: No Symptoms Neurological: Reports: Confusion. Denies: Seizure, Difficulty Walking Psychiatric: Reports: Other (combative and resistive to cares.) ED EXAM, GENERAL - Physical Exam Exam: See Below Exam Limited By: Altered Mental Status General Appearance: Obtunded Eye Exam: Bilateral Eye: PERRL Ears: Normal External Exam, Normal Canal, Normal TMs Nose: Normal Inspection Throat/Mouth: Normal Inspection, Normal Oropharynx Head: Atraumatic, Normocephalic Neck: Normal Inspection, Supple, Non-Tender, Full Range of Motion Respiratory/Chest: No Respiratory Distress, Lungs Clear, Normal Breath Sounds Cardiovascular: Regular Rate, Rhythm, No Edema Peripheral Pulses: 4+: Carotid (L), Carotid (R) GI/Abdominal: Normal Bowel Sounds, Soft Back Exam: Normal Inspection Extremities: Normal Inspection, Normal Range of Motion, No Pedal Edema, Normal Capillary Refill Neurological: Alert, Disoriented, Slow to Respond. No: Normal Cognition Skin Exam: Warm, Dry, Intact Course - Vital Signs Last Recorded V/S: Last Vital Signs Temp 97.7 F 05/06/18 04:00 Pulse 63 05/06/18 04:00 Resp 16 05/06/18 04:00 BP 125/55 L 05/06/18 04:00 Pulse Ox 96 05/06/18 04:00 - Orders/Labs/Meds Orders: Active Orders 24 hr Category Date Time Status CXR [Chest 1V Frontal] [CR] Stat Exams 05/05/18 09:27 Taken CULTURE URINE [RM] Stat Lab 05/05/18 09:55 Received Medication Orders Enoxaparin Sodium (Lovenox) 40 mg SUBCUT Q24H [facility] Last Admin: 05/05/18 19:23 Dose: 40 mg Furosemide (Lasix) 40 mg PO DAILY [facility] Last Admin: 05/05/18 11:50 Dose: 40 mg Levofloxacin/Dextrose 500 mg/ (Premix) 100 mls @ 100 mls/hr IV DAILY@1200 [facility] Last Admin: 05/05/18 11:43 Dose: 100 mls/hr Sodium Chloride (Normal Saline) 1,000 mls @ 100 mls/hr IV ASDIRECTED [facility] Last Admin: 05/05/18 22:17 Dose: 100 mls/hr Infusion: 05/05/18 21:42 Dose: 100 mls/hr Admin: 05/05/18 11:42 Dose: 100 mls/hr Lactulose (Cephulac) 20 gm PO TID [facility] Last Admin: 05/05/18 19:23 Dose: 20 gm Admin: 05/05/18 13:06 Dose: 20 gm Lisinopril (Prinivil) 20 mg PO DAILY [facility] Last Admin: 05/05/18 11:50 Dose: 20 mg Lorazepam (Ativan) 1 mg PO Q6H PRN PRN Reason: Anxiety Ondansetron HCl (Zofran Odt) 4 - 8 mg PO Q6H PRN PRN Reason: Nausea Last Admin: 05/05/18 17:51 Dose: 4 mg Oxycodone HCl (Oxycontin) 80 mg PO BID [facility] Last Admin: 05/05/18 19:22 Dose: 80 mg Admin: 05/05/18 12:21 Dose: 80 mg Oxycodone HCl (Oxycodone) 30 - 60 mg PO Q4H PRN PRN Reason: Pain Last Admin: 05/05/18 22:59 Dose: 30 mg Potassium Chloride (Klor-Con 10) 20 meq PO BID [facility] Last Admin: 05/05/18 19:22 Dose: 20 meq Admin: 05/05/18 13:06 Dose: 20 meq Quetiapine Fumarate (Seroquel) 25 mg PO BEDTIME PRN PRN Reason: Sleep Last Admin: 05/05/18 22:59 Dose: 25 mg Labs: Laboratory Tests 05/05/18 05/05/18 05/05/18 Range/Units 09:38 09:38 09:38 WBC 3.3 L (5.0-10.0) 10^3/uL RBC 4.76 (4.00-5.50) 10^6/uL Hgb 14.2 (12.0-16.0) g/dL Hct 41.4 (37.0-47.0) % MCV 87.0 (82.0-94.0) fL MCH 29.8 (27.0-32.0) pg MCHC 34.3 (33.0-38.0) g/dL RDW Coeff of Danielle 14.8 (11.0-15.0) % Plt Count 132 L (150-400) 10^3/uL Neut % (Auto) 60.8 (35-85) % Lymph % (Auto) 26.6 (10-55) % Smith % (Auto) 8.6 (0-16) % Eos % (Auto) 3.1 (0-5) % Baso % (Auto) 0.9 (0-3) % Neut # (Auto) 1.99 (1.80-7.00) 10^3/uL Lymph # (Auto) 0.87 L (1.00-4.80) 10^3/uL Smith # (Auto) 0.28 (0.00-0.80) 10^3/uL Eos # (Auto) 0.10 (0.00-0.45) 10^3/uL Baso # (Auto) 0.03 10^3/uL Sodium 141 (136-145) mEq/L Potassium 3.2 L D (3.5-5.0) mEq/L Chloride 102 (98-106) mEq/L Carbon Dioxide 33 H (21-32) mmol/L BUN 13 D (7-18) mg/dL Creatinine 1.0 (0.6-1.0) mg/dL Est Cr Clr Drug Dosing 59.63 mL/min Estimated GFR (MDRD) 57 L (>=60) mL/min Glucose 127 H D (75-99) mg/dL Calcium 9.6 (8.4-10.1) mg/dL Total Bilirubin 2.2 H (0.0-1.0) mg/dL AST 91 H (15-37) U/L ALT 117 H (12-78) U/L Alkaline Phosphatase 386 H (46-116) U/L Ammonia 240 H (6-47) umol/L C-Reactive Protein 0.9 H (0.2-0.8) mg/dL Total Protein 7.4 (6.4-8.2) g/dL Albumin 3.1 L (3.4-5.0) g/dL Specimen Appearance Clear Urine Color (YELLOW) Urine Appearance (CLEAR) Urine pH (4.5-8.0) Ur Specific [place] (1.003-1.020) Urine Protein (NEGATIVE) mg/dL Urine Glucose (UA) (NEGATIVE) mg/dL Urine Ketones (NEGATIVE) mg/dL Urine Occult Blood (NEGATIVE) Urine Nitrite (NEGATIVE) Urine Bilirubin (NEGATIVE) Urine Urobilinogen (0.2-1.0) EU/dL Ur Leukocyte Esterase (NEGATIVE) Urine RBC (0-5) /HPF Urine WBC (0-5) /HPF Ur Epithelial Cells (NOT SEEN) /HPF Urine Bacteria (NOT SEEN) /HPF 05/05/18 Range/Units 09:55 WBC (5.0-10.0) 10^3/uL RBC (4.00-5.50) 10^6/uL Hgb (12.0-16.0) g/dL Hct (37.0-47.0) % MCV (82.0-94.0) fL MCH (27.0-32.0) pg MCHC (33.0-38.0) g/dL RDW Coeff of Danielle (11.0-15.0) % Plt Count (150-400) 10^3/uL Neut % (Auto) (35-85) % Lymph % (Auto) (10-55) % Smith % (Auto) (0-16) % Eos % (Auto) (0-5) % Baso % (Auto) (0-3) % Neut # (Auto) (1.80-7.00) 10^3/uL Lymph # (Auto) (1.00-4.80) 10^3/uL Smith # (Auto) (0.00-0.80) 10^3/uL Eos # (Auto) (0.00-0.45) 10^3/uL Baso # (Auto) 10^3/uL Sodium (136-145) mEq/L Potassium (3.5-5.0) mEq/L Chloride (98-106) mEq/L Carbon Dioxide (21-32) mmol/L BUN (7-18) mg/dL Creatinine (0.6-1.0) mg/dL Est Cr Clr Drug Dosing mL/min Estimated GFR (MDRD) (>=60) mL/min Glucose (75-99) mg/dL Calcium (8.4-10.1) mg/dL Total Bilirubin (0.0-1.0) mg/dL AST (15-37) U/L ALT (12-78) U/L Alkaline Phosphatase (46-116) U/L Ammonia (6-47) umol/L C-Reactive Protein (0.2-0.8) mg/dL Total Protein (6.4-8.2) g/dL Albumin (3.4-5.0) g/dL Specimen Appearance Urine Color Yellow (YELLOW) Urine Appearance Clear (CLEAR) Urine pH 7.0 (4.5-8.0) Ur Specific [place] 1.010 (1.003-1.020) Urine Protein Negative (NEGATIVE) mg/dL Urine Glucose (UA) Negative (NEGATIVE) mg/dL Urine Ketones Negative (NEGATIVE) mg/dL Urine Occult Blood Negative (NEGATIVE) Urine Nitrite Negative (NEGATIVE) Urine Bilirubin Negative (NEGATIVE) Urine Urobilinogen 2.0 H (0.2-1.0) EU/dL Ur Leukocyte Esterase Small H (NEGATIVE) Urine RBC Not seen (0-5) /HPF Urine WBC 0-5 (0-5) /HPF Ur Epithelial Cells Occasional H (NOT SEEN) /HPF Urine Bacteria Many H (NOT SEEN) /HPF Meds: Medications Generic Name Dose Route Start Last Admin Trade Name Freq PRN Reason Stop Dose Admin Enoxaparin Sodium 40 mg 05/05/18 20:00 05/05/18 19:23 Lovenox SUBCUT 40 mg Q24H KYLE Administration Furosemide 40 mg 05/05/18 11:00 05/05/18 11:50 Lasix PO 40 mg DAILY KYLE Administration Levofloxacin/Dextrose 500 mg/ 100 mls @ 100 mls/hr 05/05/18 12:00 05/05/18 11 :43 Premix IV 100 mls/hr DAILY@1200 KYLE Administration Sodium Chloride 1,000 mls @ 100 mls/hr 05/05/18 11:12 05/05/18 22:17 Normal Saline IV 100 mls/hr ASDIRECTED KYLE Administration Lactulose 20 gm 05/05/18 14:00 05/05/18 19:23 Cephulac PO 20 gm TID KYLE Administration Lisinopril 20 mg 05/05/18 11:00 05/05/18 11:50 Prinivil PO 20 mg DAILY KYLE Administration Lorazepam 1 mg 05/05/18 12:36 Ativan PO Q6H PRN Anxiety Ondansetron HCl 4 - 8 mg 05/05/18 12:54 05/05/18 17:51 Zofran Odt PO 4 mg Q6H PRN Administration Nausea Oxycodone HCl 80 mg 05/05/18 12:00 05/05/18 19:22 Oxycontin PO 80 mg BID KYLE Administration Oxycodone HCl 30 - 60 mg 05/05/18 12:56 05/05/18 22:59 Oxycodone PO 30 mg Q4H PRN Administration Pain Potassium Chloride 20 meq 05/05/18 13:00 05/05/18 19:22 Klor-Con 10 PO 20 meq BID KYLE Administration Quetiapine Fumarate 25 mg 05/05/18 10:56 05/05/18 22:59 Seroquel PO 25 mg BEDTIME PRN Administration Sleep Discontinued Medications Generic Name Dose Route Start Last Admin Trade Name Freq PRN Reason Stop Dose Admin Lidocaine/Prilocaine 1 gm 05/05/18 10:27 05/05/18 10:30 Emla Crm TOP 05/05/18 10:28 1 gram ONETIME ONE Administration Non-Formulary Medication 1 mg 05/05/18 10:56 Lorazepam [Ativan] PO ASDIRECTED PRN Anxiety Non-Formulary Medication 8 mg 05/05/18 10:56 Ondansetron Hcl PO Q6H PRN Nausea Non-Formulary Medication 30 - 60 mg 05/05/18 10:56 Oxycodone PO Q4H PRN Pain Non-Formulary Medication 20 meq 05/05/18 11:00 05/05/18 12:37 Potassium Chloride [Potassium Chloride] PO Not Given BID KYLE Oxycodone HCl 40 mg 05/05/18 11:00 05/05/18 12:25 Oxycontin PO Not Given Q12H [facility] - Re-Assessments/Exams Free Text/Narrative Re-Assessment/Exam: 05/05/18 1110 Discussed labs and pt with Dr. Olguin. He agrees with admit at this time. Will admit acute care. If she becomes more unresponsive then would need to be transferred as we do not have ability to draw ammonia levels here in [place]. Will start IV fluids and antibiotics for the UTI that is present and wait for the culture report. Ammonia level should be back in the AM. Discussed this with Stevie and he is in agreement of this plan. Departure - Departure Time of Disposition: 11:10 Disposition: Admitted As Inpatient 65 Condition: Poor Clinical Impression: Confusion, Metastatic breast cancer UTI (urinary tract infection) Qualifiers: Urinary tract infection type: site unspecified Hematuria presence: with hematuria Qualified Code(s): N39.0 - Urinary tract infection, site not specified Brain cancer Qualifiers: Malignant neoplasm of brain location: unspecified location Qualified Code(s): C71.9 - Malignant neoplasm of brain, unspecified Liver cancer Qualifiers: Liver malignancy type: unspecified liver malignancy Qualified Code(s): C22.9 - Malignant neoplasm of liver, not specified as primary or secondary - Discharge Information - Problem List & Annotations (1) UTI (urinary tract infection) SNOMED Code(s): 52258759 Code(s): N39.0 - URINARY TRACT INFECTION, SITE NOT SPECIFIED Status: Acute Priority: High Current Visit: Yes Qualifiers: Urinary tract infection type: site unspecified Hematuria presence: with hematuria Qualified Code(s): N39.0 - Urinary tract infection, site not specified; R31.9 - Hematuria, unspecified; R31.9 - Hematuria, unspecified (2) Confusion SNOMED Code(s): 418414152 Code(s): R41.0 - DISORIENTATION, UNSPECIFIED Status: Acute Priority: High Current Visit: Yes (3) Brain cancer SNOMED Code(s): 702031462 Code(s): C71.9 - MALIGNANT NEOPLASM OF BRAIN, UNSPECIFIED Status: Chronic Priority: Low Current Visit: Yes Qualifiers: Malignant neoplasm of brain location: unspecified location Qualified Code(s ): C71.9 - Malignant neoplasm of brain, unspecified (4) Liver cancer SNOMED Code(s): 55479466 Code(s): C22.9 - MALIG NEOPLASM OF LIVER, NOT SPECIFIED PRIMARY OR SEC Status: Chronic Priority: Low Current Visit: Yes Qualifiers: Liver malignancy type: unspecified liver malignancy Qualified Code(s): C22.9 - Malignant neoplasm of liver, not specified as primary or secondary (5) Metastatic breast cancer SNOMED Code(s): 972197265, 565769910 Code(s): C50.919 - MALIGNANT NEOPLASM OF UNSP SITE OF UNSPECIFIED FEMALE BREAST Status: Chronic Priority: Low Current Visit: Yes - Problem List Review Problem List Initiated/Reviewed/Updated: Yes - My Orders Last 24 Hours: My Active Orders 05/05/18 09:27 CXR [Chest 1V Frontal] [CR] Stat 05/05/18 09:55 CULTURE URINE [RM] Stat - Assessment/Plan Admission H&P: Please use this note as an admission H&P Last 24 Hours: My Active Orders 05/05/18 09:27 CXR [Chest 1V Frontal] [CR] Stat 05/05/18 09:55 CULTURE URINE [RM] Stat
[2018-05-05] MEDS ORDERED: Lidocaine/Prilocaine 2.5-2.5% Crm 5 GM Tube TOP ONE (10:27)
[2018-05-05] MEDS ORDERED: OXYCODONE PO PRN (10:56)
[2018-05-05] MEDS ORDERED: Non-Formulary Medication 1 Each (Lorazepam [Ativan] 1 MG) PO PRN (10:56)
[2018-05-05] MEDS ORDERED: Non-Formulary Medication 1 Each (Ondansetron Hcl 8 MG) PO PRN (10:56)
[2018-05-05] MEDS ORDERED: Non-Formulary Medication 1 Each (Potassium Chloride [Potassium Chloride] 20 MEQ) PO SCH (11:00)
[2018-05-05] MEDS ORDERED: oxyCODONE ER 10 MG TAB.ER PO SCH (11:00)
[2018-05-05] MEDS: Sodium Chloride 0.9% 1,000 ML IV SCH ×2 (11:42→22:17)
[2018-05-05] MEDS: Levofloxacin/Dextrose 5%-Water 500 MG in Premix Bag 1 BAG IV SCH (11:43)
[2018-05-05] MEDS: Lisinopril 20 MG Tab PO SCH (11:50)
[2018-05-05] MEDS: Furosemide 40 MG Tab PO SCH (11:50)
[2018-05-05] MEDS: oxyCODONE ER 10 MG TAB.ER PO SCH ×2 (12:21→19:22)
[2018-05-05] MEDS ORDERED: LORazepam 0.5 MG Tab PO PRN (12:36)
[2018-05-05] MEDS: Potassium Chloride 10 MEQ Tab.ER PO SCH ×2 (13:06→19:22)
[2018-05-05] MEDS: Lactulose Soln 10 GM/15 ML 30 ML UD Cup PO SCH ×2 (13:06→19:23)
[2018-05-05] MEDS: Ondansetron 4 MG Tab.DIS PO PRN (17:51)
[2018-05-05] MEDS ORDERED: Enoxaparin 40 MG/0.4 ML Syringe SUBCUT SCH (20:00)
[2018-05-05] MEDS: oxyCODONE 5 MG Tab PO PRN (22:59)
[2018-05-05] MEDS: QUEtiapine 25 MG Tab PO PRN (22:59)
[2018-05-06 07:38] LABS: CHLORIDE,CL 110 mEq/L (98-106); SODIUM,NA 146 mEq/L (136-145)
[2018-05-06] MEDS: Potassium Chloride 10 MEQ Tab.ER PO SCH ×2 (07:59→20:02)
[2018-05-06] MEDS: Furosemide 40 MG Tab PO SCH (07:59)
[2018-05-06] MEDS: Lisinopril 20 MG Tab PO SCH (07:59)
[2018-05-06] MEDS: Lactulose Soln 10 GM/15 ML 30 ML UD Cup PO SCH ×3 (08:00→20:00)
[2018-05-06] MEDS: Sodium Chloride 0.9% 1,000 ML IV SCH (08:00)
[2018-05-06] MEDS: oxyCODONE ER 10 MG TAB.ER PO SCH ×2 (08:24→20:01)
[2018-05-06] MEDS: Sodium Chloride 0.45% 1,000 ML IV SCH ×2 (08:38→18:51)
[2018-05-06] MEDS: Levofloxacin/Dextrose 5%-Water 500 MG in Premix Bag 1 BAG IV SCH (11:37)
[2018-05-06] MEDS: Ondansetron 4 MG Tab.DIS PO PRN ×3 (12:30→18:49)
[2018-05-06] MEDS: oxyCODONE 5 MG Tab PO PRN (14:05)
[2018-05-06] MEDS ORDERED: Ibuprofen 200 MG Tab PO PRN (15:53)
[2018-05-06] MEDS ORDERED: Enoxaparin 30 MG/0.3 ML Syringe SUBCUT SCH (20:00)
[2018-05-06] MEDS: RIFAXIMIN 550 MG PO SCH (20:03)
[2018-05-06] MEDS: QUEtiapine 25 MG Tab PO PRN (23:17)
[2018-05-07] MEDS: oxyCODONE 5 MG Tab PO PRN (01:19)
[2018-05-07] MEDS: Sodium Chloride 0.45% 1,000 ML IV SCH (04:48)
[2018-05-07 07:19] LABS: CHLORIDE,CL 108 mEq/L (98-106); SODIUM,NA 142 mEq/L (136-145)
[2018-05-07] MEDS: Lactulose Soln 10 GM/15 ML 30 ML UD Cup PO SCH (07:44)
[2018-05-07] MEDS: Potassium Chloride 10 MEQ Tab.ER PO SCH (07:44)
[2018-05-07] MEDS: oxyCODONE ER 10 MG TAB.ER PO SCH (07:45)
[2018-05-07] MEDS: Furosemide 40 MG Tab PO SCH (07:45)
[2018-05-07] MEDS: RIFAXIMIN 550 MG PO SCH (07:47)
[2018-05-07 07:49] VITALS: BP 113/55
[2018-05-07] MEDS: Lisinopril 20 MG Tab PO SCH (07:54)
[2018-05-07] MEDS: Levofloxacin/Dextrose 5%-Water 500 MG in Premix Bag 1 BAG IV SCH (09:24)
--- NOTE | 2018-05-08 14:09 | PCM.PN ---
- General Info Date of Service: 05/06/18 Admission Dx/Problem (Free Text): UTI Confusion Functional Status: Reports: Pain Controlled, Tolerating Diet, Ambulating - Review of Systems General: Reports: Weakness, Fatigue. Denies: Fever HEENT: Reports: No Symptoms Pulmonary: Denies: Shortness of Breath, Cough Cardiovascular: Denies: Chest Pain, Edema, Lightheadedness Gastrointestinal: Denies: Abdominal Pain, Nausea, Vomiting Genitourinary: Reports: Frequency Musculoskeletal: Reports: No Symptoms Skin: Reports: No Symptoms Neurological: Reports: No Symptoms Psychiatric: Reports: No Symptoms - Patient Data Vitals - Most Recent: Last Vital Signs Temp 97.5 F 05/07/18 07:48 Pulse 55 L 05/07/18 07:48 Resp 20 05/07/18 07:48 BP 113/55 L 05/07/18 07:48 Pulse Ox 99 05/07/18 07:48 Weight - Most Recent: 158 lb 4.8 oz Med Orders - Current: Current Medications Discontinued Medications Enoxaparin Sodium (Lovenox) 40 mg SUBCUT Q24H [facility] Last Admin: 05/05/18 19:23 Dose: 40 mg Enoxaparin Sodium (Lovenox) 30 mg SUBCUT DAILY@2000 [facility] Last Admin: 05/06/18 20:02 Dose: 30 mg Furosemide (Lasix) 40 mg PO DAILY [facility] Last Admin: 05/07/18 07:45 Dose: 40 mg Heparin Sodium (Porcine) (Heparin Lock Flush 100 Units/Ml) Confirm Administered Dose 500 units .ROUTE .STK-MED ONE Stop: 05/07/18 09:24 Levofloxacin/Dextrose 500 mg/ (Premix) 100 mls @ 100 mls/hr IV DAILY@1200 [facility] Last Admin: 05/07/18 09:24 Dose: 100 mls/hr Sodium Chloride (Normal Saline) 1,000 mls @ 100 mls/hr IV ASDIRECTED [facility] Last Admin: 05/06/18 08:00 Dose: 100 mls/hr Sodium Chloride (Sodium Chloride 0.45%) 1,000 mls @ 100 mls/hr IV ASDIRECTED [facility] Last Admin: 05/07/18 04:48 Dose: 100 mls/hr Ibuprofen (Motrin) 400 mg PO Q6H PRN PRN Reason: Pain Last Admin: 05/06/18 15:58 Dose: 400 mg Lactulose (Cephulac) 20 gm PO TID [facility] Last Admin: 05/07/18 07:44 Dose: 20 gm Lidocaine/Prilocaine (Emla Crm) 1 gm TOP ONETIME ONE Stop: 05/05/18 10:28 Last Admin: 05/05/18 10:30 Dose: 1 gram Lisinopril (Prinivil) 20 mg PO DAILY [facility] Last Admin: 05/07/18 07:54 Dose: Not Given Lorazepam (Ativan) 1 mg PO Q6H PRN PRN Reason: Anxiety Non-Formulary Medication (Lorazepam [Ativan]) 1 mg PO ASDIRECTED PRN PRN Reason: Anxiety Non-Formulary Medication (Ondansetron Hcl) 8 mg PO Q6H PRN PRN Reason: Nausea Non-Formulary Medication (Oxycodone) 30 - 60 mg PO Q4H PRN PRN Reason: Pain Non-Formulary Medication (Potassium Chloride [Potassium Chloride]) 20 meq PO BID [facility] Last Admin: 05/05/18 12:37 Dose: Not Given Rifaximin [Xifaxan] (550mg Own Med ) 550 mg PO BID [facility] Last Admin: 05/07/18 07:47 Dose: 550 mg Ondansetron HCl (Zofran Odt) 4 - 8 mg PO Q6H PRN PRN Reason: Nausea Last Admin: 05/06/18 18:49 Dose: 4 mg Oxycodone HCl (Oxycontin) 40 mg PO Q12H [facility] Last Admin: 05/05/18 12:25 Dose: Not Given Oxycodone HCl (Oxycontin) 80 mg PO BID [facility] Last Admin: 05/07/18 07:45 Dose: 80 mg Oxycodone HCl (Oxycodone) 30 - 60 mg PO Q4H PRN PRN Reason: Pain Last Admin: 05/07/18 01:19 Dose: 30 mg Potassium Chloride (Klor-Con 10) 20 meq PO BID [facility] Last Admin: 05/07/18 07:44 Dose: 20 meq Quetiapine Fumarate (Seroquel) 25 mg PO BEDTIME PRN PRN Reason: Sleep Last Admin: 05/06/18 23:17 Dose: 25 mg - Exam General: Alert, Oriented HEENT: Mucous Membr. Moist/[place] Neck: Supple Lungs: Clear to Auscultation, Normal Respiratory Effort Cardiovascular: Regular Rate, Regular Rhythm GI/Abdominal Exam: Normal Bowel Sounds, Soft, Non-Tender Extremities: Normal Inspection Skin: Warm, Dry Neurological: No New Focal Deficit - Problem List & Annotations (1) Confusion SNOMED Code(s): 476888148 Code(s): R41.0 - DISORIENTATION, UNSPECIFIED Status: Acute Priority: High (2) UTI (urinary tract infection) SNOMED Code(s): 92929608 Code(s): N39.0 - URINARY TRACT INFECTION, SITE NOT SPECIFIED Status: Acute Priority: High Qualifiers: Urinary tract infection type: site unspecified Hematuria presence: with hematuria Qualified Code(s): N39.0 - Urinary tract infection, site not specified; R31.9 - Hematuria, unspecified; R31.9 - Hematuria, unspecified - Problem List Review Problem List Initiated/Reviewed/Updated: Yes - Assessment Assessment:: UTI Confusion - Plan Plan:: Patient is doing well today. Oriented. Appropriate with conversation. No recall of yesterday's events. Afebrile today. Denies any pain. Labs done do show elevated amylase at 240. Urine culture preliminary report shows 2 different gram negative rods. Sodium is higher today at 146. Liver enzymes are elevated today yet but improved from yesterday. Will continue with Levaquin until ID and sensitivities received. Contacted patient's oncologist and internal medicine at [facility] in [place] with current Amylase level. [place] Amylase likely related to infection. Continue Lactulose. To be on Xifaxan. Patient states she has not been taking so will resume use of this. Possible discharge home tomorrow.
--- NOTE | 2018-05-08 14:10 | PCM.DCSUM1 ---
Discharge Summary - Hospital Course Free Text/Narrative:: Patient presented to ER with confusion, combativeness and foul smelling urine. Has been more tired over the last 24 hours. Appetite had been decreased. Patient has a history of becoming unresponsive due to elevated ammonia levels. Has been compliant with her Lactulose, which she takes TID. Has about 2 to 3 BMs per day. Was recently at the [facility] in [place] and had a liver biopsy. Has not heard results from this. Labs indicate UTI. WBC low at 3.4. Ammonia level was sent out. Admitted and started on IV Levaquin and NS. Diagnosis: Stroke: No Modified Sebastian Scale: No Symptoms at All Modified Sebastian Scale Score: 0 - Discharge Data Discharge Date: 05/07/18 Discharge Disposition: Home, Self-Care 01 Condition: Good - Discharge Diagnosis/Problem(s) (1) Confusion SNOMED Code(s): 485139834 ICD Code: R41.0 - DISORIENTATION, UNSPECIFIED Status: Acute Priority: High (2) UTI (urinary tract infection) SNOMED Code(s): 53693731 ICD Code: N39.0 - URINARY TRACT INFECTION, SITE NOT SPECIFIED Status: Acute Priority: High Qualifiers: Urinary tract infection type: site unspecified Hematuria presence: with hematuria Qualified Code(s): N39.0 - Urinary tract infection, site not specified; R31.9 - Hematuria, unspecified; R31.9 - Hematuria, unspecified - Patient Summary/Data Complications: none Hospital Course: Patient admitted for confusion and UTI. No recall of day of admit. Is now oriented and appropriate. Denies any pain. No nausea. Does have some frequency of urine and had noted a foul odor with this. Urine cultures did show e coli and Klebsiella, both response to Levaquin. Afebrile. Liver enzymes remain elevated but improved from admit day, chronically elevated due to liver damage. Amylase was high in admit at 240. Her specialist at [facility] that is following her was consulted and felt this was related to the infection. Ensure continues to take Lactulose and resume use of her Xifaxan. Amylase done today as well, await results. - Patient Instructions Diet: Usual Diet as Tolerated Activity: As Tolerated - Discharge Plan *PRESCRIPTION DRUG MONITORING PROGRAM REVIEWED*: No *COPY OF PRESCRIPTION DRUG MONITORING REPORT IN PATIENT [place]: No Prescriptions/Med Rec: Levofloxacin [Levaquin] 500 mg PO DAILY #10 tablet Home Medications: Home Meds Cholecalciferol (Vitamin D3) [Vitamin D3] 1,000 unit PO DAILY 01/20/14 [History] Lisinopril [Prinivil] 20 mg PO DAILY 01/20/14 [History] oxyCODONE 60 mg PO Q4H PRN 01/20/14 [History] LORazepam [Ativan] 1 mg PO Q6H PRN 05/14/15 [History] Magnesium 500 mg PO BID 05/14/15 [History] Ondansetron HCl [Zofran] 8 mg PO Q6H PRN 05/14/15 [History] QUEtiapine Fumarate [Seroquel] 25 mg PO BEDTIME PRN 12/26/16 [History] Esomeprazole Magnesium [Nexium] 40 mg PO DAILY 05/05/18 [History] Furosemide 40 mg PO DAILY 05/05/18 [History] Lactulose 30 ml PO TID 05/05/18 [History] Potassium Chloride 20 meq PO BID 05/05/18 [History] oxyCODONE HCl [Oxycontin] 80 mg PO BID 05/05/18 [History] Levofloxacin [Levaquin] 500 mg PO DAILY #10 tablet 05/07/18 [Rx] Rifaximin [Xifaxan] 550 mg PO BID 05/07/18 [History] Patient Handouts: Urinary Tract Infection, Adult Forms: ED Department Discharge Referrals: Rosy Eden PA [ED Midlevel Provider] - (Follow up in 10 days with Meena) - Discharge Summary/Plan Comment DC Time >30 min.: No Discharge Summary/Plan Comment: Discharge home Continue Levaquin 500 mg daily for 10 days Continue Lactulose and Xifaxan Follow up in 10 days - General Info Date of Service: 05/07/18 Admission Dx/Problem (Free Text: UTI Confusion Functional Status: Reports: Pain Controlled, Tolerating Diet, Ambulating - Review of Systems General: Denies: Fever, Weakness, Fatigue HEENT: Reports: No Symptoms Pulmonary: Denies: Shortness of Breath, Cough Cardiovascular: Denies: Chest Pain, Edema, Lightheadedness Gastrointestinal: Denies: Abdominal Pain, Nausea, Vomiting Genitourinary: Reports: Frequency Skin: Reports: No Symptoms Neurological: Reports: No Symptoms - Patient Data Vitals - Most Recent: Last Vital Signs Temp 97.5 F 05/07/18 07:48 Pulse 55 L 05/07/18 07:48 Resp 20 05/07/18 07:48 BP 113/55 L 05/07/18 07:48 Pulse Ox 99 05/07/18 07:48 Weight - Most Recent: 158 lb 4.8 oz Med Orders - Current: Current Medications Discontinued Medications Enoxaparin Sodium (Lovenox) 40 mg SUBCUT Q24H [facility] Last Admin: 05/05/18 19:23 Dose: 40 mg Enoxaparin Sodium (Lovenox) 30 mg SUBCUT DAILY@2000 [facility] Last Admin: 05/06/18 20:02 Dose: 30 mg Furosemide (Lasix) 40 mg PO DAILY [facility] Last Admin: 05/07/18 07:45 Dose: 40 mg Heparin Sodium (Porcine) (Heparin Lock Flush 100 Units/Ml) Confirm Administered Dose 500 units .ROUTE .STK-MED ONE Stop: 05/07/18 09:24 Levofloxacin/Dextrose 500 mg/ (Premix) 100 mls @ 100 mls/hr IV DAILY@1200 [facility] Last Admin: 05/07/18 09:24 Dose: 100 mls/hr Sodium Chloride (Normal Saline) 1,000 mls @ 100 mls/hr IV ASDIRECTED [facility] Last Admin: 05/06/18 08:00 Dose: 100 mls/hr Sodium Chloride (Sodium Chloride 0.45%) 1,000 mls @ 100 mls/hr IV ASDIRECTED [facility] Last Admin: 05/07/18 04:48 Dose: 100 mls/hr Ibuprofen (Motrin) 400 mg PO Q6H PRN PRN Reason: Pain Last Admin: 05/06/18 15:58 Dose: 400 mg Lactulose (Cephulac) 20 gm PO TID [facility] Last Admin: 05/07/18 07:44 Dose: 20 gm Lidocaine/Prilocaine (Emla Crm) 1 gm TOP ONETIME ONE Stop: 05/05/18 10:28 Last Admin: 05/05/18 10:30 Dose: 1 gram Lisinopril (Prinivil) 20 mg PO DAILY [facility] Last Admin: 05/07/18 07:54 Dose: Not Given Lorazepam (Ativan) 1 mg PO Q6H PRN PRN Reason: Anxiety Non-Formulary Medication (Lorazepam [Ativan]) 1 mg PO ASDIRECTED PRN PRN Reason: Anxiety Non-Formulary Medication (Ondansetron Hcl) 8 mg PO Q6H PRN PRN Reason: Nausea Non-Formulary Medication (Oxycodone) 30 - 60 mg PO Q4H PRN PRN Reason: Pain Non-Formulary Medication (Potassium Chloride [Potassium Chloride]) 20 meq PO BID [facility] Last Admin: 05/05/18 12:37 Dose: Not Given Rifaximin [Xifaxan] (550mg Own Med ) 550 mg PO BID [facility] Last Admin: 05/07/18 07:47 Dose: 550 mg Ondansetron HCl (Zofran Odt) 4 - 8 mg PO Q6H PRN PRN Reason: Nausea Last Admin: 05/06/18 18:49 Dose: 4 mg Oxycodone HCl (Oxycontin) 40 mg PO Q12H [facility] Last Admin: 05/05/18 12:25 Dose: Not Given Oxycodone HCl (Oxycontin) 80 mg PO BID [facility] Last Admin: 05/07/18 07:45 Dose: 80 mg Oxycodone HCl (Oxycodone) 30 - 60 mg PO Q4H PRN PRN Reason: Pain Last Admin: 05/07/18 01:19 Dose: 30 mg Potassium Chloride (Klor-Con 10) 20 meq PO BID [facility] Last Admin: 05/07/18 07:44 Dose: 20 meq Quetiapine Fumarate (Seroquel) 25 mg PO BEDTIME PRN PRN Reason: Sleep Last Admin: 05/06/18 23:17 Dose: 25 mg - Exam General: Reports: Alert, Oriented HEENT: Reports: Mucous Membr. Moist/[place]ck: Reports: Supple Lungs: Reports: Clear to Auscultation, Normal Respiratory Effort Cardiovascular: Reports: Regular Rate, Regular Rhythm GI/Abdominal Exam: Normal Bowel Sounds, Soft, Non-Tender Skin: Reports: Warm, Dry Neurological: Reports: No New Focal Deficit
== END 2018-05-07 10:45 | disposition home or self-care (01) | DRG 690 ==
LOC: CC.ED 08:22 → CC.MS 10:52 → UNDOADMIN 11:07
PROVIDERS: ADMIT Physician Assistant Medical; ATTEND Family Medicine
DX: N39.0 Urinary tract infection, site not specified (principal); C78.7 Secondary malignant neoplasm of liver and intrahepatic bile duct; C79.31 Secondary malignant neoplasm of brain; R41.82 Altered mental status, unspecified; B96.20 Unspecified Escherichia coli [E. coli] as the cause of diseases classified elsewhere; B96.1 Klebsiella pneumoniae [K. pneumoniae] as the cause of diseases classified elsewhere; I10 Essential (primary) hypertension; K21.9 Gastro-esophageal reflux disease without esophagitis; M19.90 Unspecified osteoarthritis, unspecified site; G62.9 Polyneuropathy, unspecified; F41.9 Anxiety disorder, unspecified; F17.200 Nicotine dependence, unspecified, uncomplicated; C50.919 Malignant neoplasm of unspecified site of unspecified female breast; Z88.8 Allergy status to other drugs, medicaments and biological substances; Z88.6 Allergy status to analgesic agent; Z91.013 Allergy to seafood; Z79.899 Other long term (current) drug therapy; Z87.440 Personal history of urinary (tract) infections; Z90.710 Acquired absence of both cervix and uterus; Z92.21 Personal history of antineoplastic chemotherapy
CPT/HCPCS: 36415; 71045; 80053; 81001; 82140; 85025; 86140; 87086; 87088; 87186; 99285; A9270-GY; J1650; J1956; J7030

== ENCOUNTER 2018-06-16 16:39 | Emergency (ER) | payer MEDICARE, OTHER ==
[2018-06-16 16:49] VITALS: BP 135/67
--- NOTE | 2018-06-16 17:13 | EDM.PDOC ---
ED HPI GENERAL MEDICAL PROBLEM - General Chief Complaint: Genitourinary Problem Stated Complaint: UTI sx Time Seen by Provider: 06/16/18 16:50 Source of Information: Reports: Patient History Limitations: Reports: No Limitations - History of Present Illness Onset: Gradual Onset Date: 06/15/18 Duration: Constant, Getting Worse Location: Reports: Other () Quality: Reports: Burning Severity: Mild Associated Symptoms: Reports: No Other Symptoms - Related Data Allergies Allergy/AdvReac Type Severity Reaction Status Date / Time calcitonin,salmon,synthetic Allergy Cannot Verified 06/16/18 16:49 [From Miacalcin] Remember codeine Allergy Hives Verified 06/16/18 16:49 shellfish derived Allergy Hives Verified 06/16/18 16:49 Home Meds: Home Meds Cholecalciferol (Vitamin D3) [Vitamin D3] 1,000 unit PO DAILY 01/20/14 [History] Lisinopril [Prinivil] 20 mg PO DAILY 01/20/14 [History] oxyCODONE 60 mg PO Q4H PRN 01/20/14 [History] LORazepam [Ativan] 1 mg PO Q6H PRN 05/14/15 [History] Magnesium 500 mg PO BID 05/14/15 [History] Ondansetron HCl [Zofran] 8 mg PO Q6H PRN 05/14/15 [History] Esomeprazole Magnesium [Nexium] 40 mg PO DAILY 05/05/18 [History] Furosemide 40 mg PO DAILY 05/05/18 [History] Lactulose 30 ml PO TID 05/05/18 [History] Potassium Chloride 20 meq PO BID 05/05/18 [History] oxyCODONE HCl [Oxycontin] 80 mg PO BID 05/05/18 [History] Rifaximin [Xifaxan] 550 mg PO BID 05/07/18 [History] Aspirin [Halfprin] 81 mg PO DAILY 06/16/18 [History] Ferrous Sulfate [Iron] 325 mg PO DAILY 06/16/18 [History] Vits #93/Iron Fum/FA [ Formula Tablet] 1 each PO DAILY [History] Past Medical History HEENT History: Reports: Allergic Rhinitis, Impaired Vision Cardiovascular History: Reports: Hypertension Respiratory History: Reports: Other (See Below) Gastrointestinal History: Reports: GERD Genitourinary History: Reports: UTI, Recurrent 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 states patient had a liver biopsy last week in [place] Social & Family History - Family History Family Medical History: Noncontributory : Reports: Dialysis, Renal Disease/Insufficiency Endocrine/Metabolic: Reports: Diabetes, type II - Tobacco Use Smoking Status *Q: Current Every Day Smoker Years of Tobacco use: 40 Packs/Tins Daily: 0.5 - Caffeine Use Caffeine Use: Reports: Coffee - Sexual History Sexual History: Reports: None - Living Situation & Occupation Living situation: Reports: , with Spouse Occupation: Unemployed ED ROS GENERAL - Review of Systems Review Of Systems: See Below Constitutional: Reports: Chills. Denies: Fever, Malaise, Weakness, Fatigue Respiratory: Denies: Shortness of Breath Cardiovascular: Denies: Chest Pain GI/Abdominal: Denies: Diarrhea, Nausea, Vomiting : Reports: Dysuria, Frequency. Denies: Discharge, Flank Pain, Hematuria, Incontinence Musculoskeletal: Denies: Neck Pain Neurological: Reports: No Symptoms ED EXAM, RENAL/ - Physical Exam Exam: See Below Exam Limited By: No Limitations General Appearance: Alert, WD/WN, No Apparent Distress Respiratory/Chest: No Respiratory Distress Cardiovascular: Normal Peripheral Pulses, Regular Rate, Rhythm GI/Abdominal: Soft, Non-Tender Neurological: Alert, Oriented, Normal Cognition Psychiatric: Normal Affect, Normal Mood Skin Exam: Warm, Dry, Normal Color Course - Vital Signs Last Recorded V/S: Last Vital Signs Temp 35.6 C 06/16/18 16:40 Pulse 76 06/16/18 16:40 Resp 18 06/16/18 16:40 BP 135/67 06/16/18 16:40 Pulse Ox 100 06/16/18 16:40 - Orders/Labs/Meds Labs: Laboratory Tests 06/16/18 Range/Units 17:04 Urine Color Light yellow (YELLOW) Urine Appearance Clear (CLEAR) Urine pH 5.5 (4.5-8.0) Ur Specific [place] 1.010 (1.003-1.020) Urine Protein Negative (NEGATIVE) mg/dL Urine Glucose (UA) 100 H (NEGATIVE) mg/dL Urine Ketones Negative (NEGATIVE) mg/dL Urine Occult Blood Negative (NEGATIVE) Urine Nitrite Negative (NEGATIVE) Urine Bilirubin Negative (NEGATIVE) Urine Urobilinogen 0.2 (0.2-1.0) EU/dL Ur Leukocyte Esterase Trace H (NEGATIVE) Urine RBC Not seen (0-5) /HPF Urine WBC 0-5 (0-5) /HPF Ur Squamous Epith Cells Occasional H (NOT SEEN) /HPF Urine Bacteria Few H (NOT SEEN) /HPF Departure - Departure Time of Disposition: 17:09 Disposition: Home, Self-Care 01 Condition: Good Clinical Impression: UTI, Urinary tract infectious disease - Discharge Information *PRESCRIPTION DRUG MONITORING PROGRAM REVIEWED*: Not Applicable *COPY OF PRESCRIPTION DRUG MONITORING REPORT IN PATIENT [place]: Not Applicable Instructions: Urinary Tract Infection, Adult Referrals: Rosy Eden PA [Primary Care Provider] - Forms: ED Department Discharge Additional Instructions: REST, HYDRATE, TAKE ALL PRESCRIPTIONS DIRECTED, FOLLOW UP WITH YOUR PCP IN 3- 5 DAYS, WEAR NATURAL FIBER UNDERWEAR, DO NOT DOUCHE, URINATE AFTER INTERCOURSE, GO IMMEDIATELY TO THE CLOSEST ER IF CHANGE OR WORSE. - Assessment/Plan Plan: UTI symptoms and hx consistent with UTI. UA is borderline. given the hx and symptomology will treat with PO nitrofurantoin 100 mg cap PO bid x 5 days with 1st dose given here in ER. Advised patient to rest, hydrate, standard UTI teaching, take all Rx as directed, fu with PCP in 3-5 days, go to closest ER if change or worse. Patient and granddaughter at bedside report understanding and agreement with plan. DC home stable in care of family.
[2018-06-16] MEDS ORDERED: Nitrofurantoin Monohydrate/Macrocrystalline 100 MG Cap PO SCH (17:30)
== END 2018-06-16 17:26 | disposition home or self-care (01) ==
LOC: CC.ED 16:39
DX: N39.0 Urinary tract infection, site not specified (principal); F17.210 Nicotine dependence, cigarettes, uncomplicated; I10 Essential (primary) hypertension; Z79.82 Long term (current) use of aspirin; Z79.899 Other long term (current) drug therapy; Z88.8 Allergy status to other drugs, medicaments and biological substances; Z88.5 Allergy status to narcotic agent
CPT/HCPCS: 81001; 99283; A9270

== ENCOUNTER 2020-10-26 12:19 | Emergency (ER) | payer MEDICARE, OTHER ==
[2020-10-26 12:22] VITALS: BP 128/51; PULSE 71
--- NOTE | 2020-10-26 13:21 | EDM.PDOC ---
ED HPI GENERAL MEDICAL PROBLEM - General Chief Complaint: Genitourinary Problem Stated Complaint: UTI symptoms Time Seen by Provider: 10/26/20 12:54 Source of Information: Reports: Patient History Limitations: Reports: No Limitations - History of Present Illness INITIAL COMMENTS - FREE TEXT/NARRATIVE: Pam is a 60 year old female who presents to ER with complaints of a foul odor to her urine and low back pain. States started feeling chilled on Wednesday and had back pain and that is often a sign of an UTI for her but it seemed to be better on so she didn't get concerned. This am, woke up with more acute pain, chills and noted a strong, foul odor to her urine. Does have frequency but admits that is "normal for me due to take lasix". No hematuria. No dysuria. No fevers. Admits these are typical symptoms for her with an infection. Onset: Gradual Duration: Day(s):, Waxing/Waning Location: Reports: Abdomen, Back Quality: Reports: Ache Severity: Mild Associated Symptoms: Reports: No Other Symptoms Lower Back Pain Score (Numeric/FACES): 5 - Related Data Allergies Allergy/AdvReac Type Severity Reaction Status Date / Time calcitonin,salmon,synthetic Allergy Cannot Verified 10/26/20 12:22 [From Miacalcin] Remember codeine Allergy Hives Verified 10/26/20 12:22 shellfish derived Allergy Hives Verified 10/26/20 12:22 Home Meds: Home Meds Cholecalciferol (Vitamin D3) [Vitamin D3] 1,000 unit PO DAILY 01/20/14 [History] lisinopriL [Prinivil] 10 mg PO DAILY 01/20/14 [History] oxyCODONE 30 mg PO Q4H PRN 01/20/14 [History] LORazepam [Ativan] 1 mg PO Q6H PRN 05/14/15 [History] Magnesium 400 mg PO DAILY 05/14/15 [History] ondansetron HCL [Zofran] 8 mg PO Q6H PRN 05/14/15 [History] Esomeprazole Magnesium [Nexium] 40 mg PO DAILY 05/05/18 [History] Furosemide 40 mg PO DAILY 05/05/18 [History] Lactulose 30 ml PO TID 05/05/18 [History] Potassium Chloride 20 meq PO BID 05/05/18 [History] Rifaximin [Xifaxan] 550 mg PO BID 05/07/18 [History] Aspirin [Halfprin] 81 mg PO DAILY 06/16/18 [History] Zinc 50 mg PO DAILY 10/26/20 [History] oxyCODONE HCl [Oxycontin] 80 mg PO BID 10/26/20 [History] Past Medical History HEENT History: Reports: Allergic Rhinitis, Impaired Vision Cardiovascular History: Reports: Hypertension Respiratory History: Reports: Other (See Below) Gastrointestinal History: Reports: GERD Genitourinary History: Reports: UTI, Recurrent 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 Musculoskeletal History: Reports: Arthritis Neurological History: Reports: Neuropathy, Peripheral Psychiatric History: Reports: Anxiety Endocrine/Metabolic History: Reports: None Hematologic History: Reports: None Immunologic History: Reports: None Oncologic (Cancer) History: Reports: Brain, Breast, Liver, Metastatic Dermatologic History: Reports: Urticaria - Infectious Disease History Infectious Disease History: Reports: None - Past Surgical History HEENT Surgical History: Reports: None Other HEENT Surgeries/Procedures: BRAIN SURGERY DUE TO BRAIN CANCER Cardiovascular Surgical History: Reports: None GI Surgical History: Reports: Other (See Below) Other GI Surgeries/Procedures: gastric bypass surgery "years ago" Female Surgical History: Reports: Hysterectomy Other Oncologic Surgeries/Procedures: partial removal of liver secondary to cancer. states patient had a liver biopsy last week in [place] Social & Family History - Family History Family Medical History: No Pertinent Family History : Reports: Dialysis, Renal Disease/Insufficiency Endocrine/Metabolic: Reports: Diabetes, type II - Tobacco Use Tobacco Use Status *Q: Current Every Day Tobacco User Years of Tobacco use: 40 Packs/Tins Daily: 0.5 - Caffeine Use Caffeine Use: Reports: Coffee - Recreational Drug Use Recreational Drug Use: No - Sexual History Sexual History: Reports: None - Living Situation & Occupation Living situation: Reports: , with Spouse Occupation: Unemployed ED ROS GENERAL - Review of Systems Review Of Systems: See Below Constitutional: Reports: Chills, Malaise. Denies: Fever, Weakness, Fatigue, Decreased Appetite HEENT: Reports: No Symptoms Respiratory: Denies: Shortness of Breath Cardiovascular: Denies: Chest Pain Endocrine: Denies: Fatigue GI/Abdominal: Denies: Abdominal Pain, Nausea, Vomiting : Reports: Flank Pain, Frequency Musculoskeletal: Reports: No Symptoms Skin: Reports: No Symptoms Neurological: Reports: No Symptoms ED EXAM, RENAL/ - Physical Exam Exam: See Below Exam Limited By: No Limitations General Appearance: Alert, WD/WN, No Apparent Distress Ears: Normal External Exam, Normal TMs Nose: Normal Inspection, Normal Mucosa, No Blood Throat/Mouth: Normal Inspection, Normal Oropharynx Head: Normocephalic Neck: Normal Inspection, Supple, Non-Tender Respiratory/Chest: No Respiratory Distress, Lungs Clear, Normal Breath Sounds Cardiovascular: Regular Rate, Rhythm GI/Abdominal: Normal Bowel Sounds, Soft, Non-Tender Back Exam: No: CVA Tenderness (L), CVA Tenderness (R) Course - Vital Signs Last Recorded V/S: Last Vital Signs Temp 97.7 F 10/26/20 12:20 Pulse 71 10/26/20 12:20 Resp 16 10/26/20 12:20 BP 128/51 L 10/26/20 12:20 Pulse Ox 100 10/26/20 12:20 - Orders/Labs/Meds Labs: Laboratory Tests 10/26/20 Range/Units 12:29 Urine Color Yellow (YELLOW) Urine Appearance Slightly cloudy (CLEAR) Urine pH 6.0 (4.5-8.0) Ur Specific [place] 1.020 (1.003-1.020) Urine Protein Negative (NEGATIVE) mg/dL Urine Glucose (UA) Negative (NEGATIVE) mg/dL Urine Ketones Negative (NEGATIVE) mg/dL Urine Occult Blood Trace-intact H (NEGATIVE) Urine Nitrite Negative (NEGATIVE) Urine Bilirubin Negative (NEGATIVE) Urine Urobilinogen 0.2 (0.2-1.0) EU/dL Ur Leukocyte Esterase Small H (NEGATIVE) Meds: Medications Discontinued Medications Generic Name Dose Route Start Last Admin Trade Name Freq PRN Reason Stop Dose Admin Trimethoprim/Sulfamethoxazole 2 packet 10/26/20 13:34 Take Home: Sulfamethoxazole/Trimethoprim 800-160 Mg Tab, 2 Tab Pack PO 10/26/20 13:35 ONETIME ONE - Re-Assessments/Exams Free Text/Narrative Re-Assessment/Exam: 10/26/20 13:36 UA positive. Departure - Departure Time of Disposition: 13:36 Disposition: Home, Self-Care 01 Condition: Good Clinical Impression: UTI, Urinary tract infectious disease - Discharge Information *PRESCRIPTION DRUG MONITORING PROGRAM REVIEWED*: No *COPY OF PRESCRIPTION DRUG MONITORING REPORT IN PATIENT [place]: No Instructions: Urinary Tract Infection, Adult, [id number] Referrals: Rosy Eden PA [Primary Care Provider] - Forms: ED Department Discharge Additional Instructions: 1. Push fluids 2. Can take AZO as needed for discomfort 3. Bactrim DS one twice a day for 5 days 4. Follow up if any concerns. Sepsis Event Note (ED) - Evaluation Sepsis Screening Result: No Definite Risk - Focused Exam Vital Signs: Vital Signs Temp Pulse Resp BP Pulse Ox 10/26/20 12:20 97.7 F 71 16 128/51 L 100
[2020-10-26] MEDS ORDERED: Take Home: Sulfamethoxazole/Trimethoprim 800-160 MG Tab, 2 Tab Pack PO ONE (13:34)
== END 2020-10-26 13:42 | disposition home or self-care (01) ==
LOC: CC.ED 12:19
DX: N39.0 Urinary tract infection, site not specified (principal); I10 Essential (primary) hypertension; K21.9 Gastro-esophageal reflux disease without esophagitis; Z72.0 Tobacco use; Z88.5 Allergy status to narcotic agent; Z91.013 Allergy to seafood; Z88.8 Allergy status to other drugs, medicaments and biological substances; Z79.82 Long term (current) use of aspirin; Z79.899 Other long term (current) drug therapy
CPT/HCPCS: 81001; 87086; 87088; 87186; 99283; A9270-GY

== ENCOUNTER 2025-04-02 21:30 | Emergency (ER) | payer MEDICARE, OTHER ==
[2025-04-02 22:04] LABS: BASOPHILS ABSOLUTE AUTO 0.03 10^3/uL (0.00-0.50); BASOPHILS PERCENT AUTO 0.6 % (0-1); EOSINOPHILS ABSOLUTE AUTO 0.10 10^3/uL (0.00-1.50); EOSINOPHILS PERCENT AUTO 2.0 % (0-6); IMMATURE GRAN ABSOLUTE AUTO 0.01 10^3/uL (0.00-0.49); IMMATURE GRAN PERCENT AUTO 0.2 % (0.0-4.9); LYMPHOCYTES ABSOLUTE AUTO 1.32 10^3/uL (0.60-5.00); LYMPHOCYTES PERCENT AUTO 26.7 % (24-44); MONOCYTES ABSOLUTE AUTO 0.32 10^3/uL (0.00-1.50); MONOCYTES PERCENT AUTO 6.5 % (0-10); NEUTROPHILS ABSOLUTE AUTO 3.17 x10^3/uL (1.80-8.00); NEUTROPHILS PERCENT AUTO 64.0 % (41-71); PLATELET COUNT,PLT 189 10^3/uL (150-400); RED BLOOD CELL COUNT 4.49 x10^6/uL (4.00-5.50); WHITE BLOOD CELL COUNT,WBC 5.0 10^3/uL (4.0-11.0)
[2025-04-02 22:12] LABS: APPEARANCE,URINE CLEAR (CLEAR); GLUCOSE,URINE NEGATIVE (NEGATIVE); OCCULT BLOOD,URINE TRACE-INTACT (NEGATIVE)
[2025-04-02 22:13] LABS: ALANINE AMINOTRANSFERASE,ALT 27.0 U/L (12-78); ASPARTATE AMNIOTRANSFERASE,AST 26.0 U/L (15-37); BILIRUBIN TOTAL 0.3 mg/dL (0.0-1.0); BLOOD UREA NITROGEN,BUN 13.0 mg/dL (7-18); CARBON DIOXIDE,CO2 35.0 mmol/L (21-32); CHLORIDE,CL 101.0 mEq/L (98-106); CREATININE 1.3 mg/dL (0.6-1.0); EST CRCL DRUG DOSING (CG) 38.82 mL/min; ESTIMATED GFR 46.0 mL/min (>=60); GLUCOSE RANDOM 166.0 mg/dL (75-99); POTASSIUM,K 4.0 mEq/L (3.5-5.0); PROTEIN TOTAL,TP 7.2 g/dL (6.4-8.2); SODIUM,NA 139.0 mEq/L (136-145)
[2025-04-02 22:16] LABS: SQUAMOUS EPITHELIAL CELLS,UR FEW /HPF (NOT SEEN)
[2025-04-02] MEDS: Ondansetron 4 MG/2 ML SDV IVPUSH PRN (22:22)
[2025-04-02] MEDS: Iopamidol 755 Mg/ML 100 ML Bottle IVPUSH ONE (22:50)
[2025-04-03 02:17] VITALS: BP 135/58; PULSE 67
== END 2025-04-03 00:10 | disposition home or self-care (01) ==
LOC: CC.ED 21:30
DX: R10.11 Right upper quadrant pain (principal); N30.01 Acute cystitis with hematuria; I10 Essential (primary) hypertension; F17.200 Nicotine dependence, unspecified, uncomplicated; Z91.013 Allergy to seafood; Z88.8 Allergy status to other drugs, medicaments and biological substances; Z79.82 Long term (current) use of aspirin; Z79.899 Other long term (current) drug therapy; Z90.710 Acquired absence of both cervix and uterus
CPT/HCPCS: 36415; 74177; 80053; 81001; 83690; 83735; 85025; 87086; 87088; 87186; 96374; 96375; 99284; J0696; J2405; Q9967; J1171